=== PATIENT | male | born 1970 | race Two or more races ===

== ENCOUNTER 2019-07-31 21:53 | Emergency (ER) | payer OTHER ==
[2019-07-31 22:04] VITALS: TEMP 98; BMI 23.0
--- NOTE | 2019-07-31 22:55 | PDOC ---
History of Present Illness - General Chief Complaint: Weakness Stated Complaint: WEAKNESS Time Seen by Provider: 07/31/19 22:41 History Source: Patient Exam Limitations: No Limitations - History of Present Illness Initial Comments: 07/31/19 22:56 48yM w PMHx untreated HIV, Hep C, neuropathy, homeless, substance abuse (heroin , cocaine, fentanyl, alcohol) presenting from [facility] for cough, weight loss, back pain. Ongoing white productive cough and chills, 2 weeks, 60lb weight loss and diarrhea past 2 months, L paraspinal lumbar back pain 4 days. Last injected drugs yesterday. Says skin abrasions from scratching under cocaine. Did not take any pain meds, denies back trauma. Denies nausea/vomiting, chest pain/SOB, ABD pain, urinary changes. Denies suicidal/homicidal ideation Past History - Past Medical History Allergies/Adverse Reactions: Allergies Allergy/AdvReac Type Severity Reaction Status Date / Time NSAIDS (Non-Steroidal Allergy Severe Verified 07/31/19 16:56 Anti-Inflamma Home Medications: Ambulatory Orders Citalopram Hydrobromide [Citalopram HBr] 40 mg PO DAILY 07/31/19 Risperidone 1 mg PO DAILY 07/31/19 Sulfamethoxazole/Trimethoprim [Bactrim DS -] 800 mg PO DAILY 07/31/19 traZODone HCL [Trazodone HCl] 100 mg PO DAILY 07/31/19 Anemia: No Asthma: No Cancer: No Cardiac Disorders: No CVA: No COPD: No CHF: No Dementia: No Diabetes: No GI Disorders: Yes (GI BLEEDS) Disorders: No HTN: No Hypercholesterolemia: No Kidney Stones: No Liver Disease: No Seizures: No Other medical history: Hep C - Surgical History Abdominal Surgery: No Appendectomy: No Cardiac Surgery: No Cholecystectomy: No Lung Surgery: No Neurologic Surgery: No Orthopedic Surgery: No - Reproductive History Testicular Surgery: No - Psycho Social/Smoking Cessation Hx Smoking History: Never smoked Have you smoked in the past 12 months: No Number of Cigarettes Smoked Daily: 4 Information on smoking cessation initiated: No 'Breaking Loose' booklet given: 03/25/18 Hx Alcohol Use: No Drug/Substance Use Hx: No Substance Use Type: Alcohol, Cocaine, Marijuana Hx Substance Use Treatment: Yes Review of Systems - Review of Systems Constitutional: No: Chills, Fever HEENTM: Yes: Nose Congestion. No: Eye Pain, Nose Pain, Throat Pain Respiratory: Yes: Cough. No: Shortness of Breath Cardiac (ROS): No: Chest Pain, Palpitations ABD/GI: Yes: Diarrhea. No: Abdominal Distended, Constipated, Nausea, Vomiting : No: Burning, Dysuria, Hematuria Musculoskeletal: Yes: Back Pain. No: Joint Pain Integumentary: No: Bruising, Flushing, Lesions Neurological: No: Headache, Seizure, Tingling Psychiatric: No: Anxiety, Depression, Stressors Endocrine: No: Excessive Sweating, Flushing, Intolerance to Cold, Intolerance to Heat Hematologic/Lymphatic: No: Anemia, Blood Clots *Physical Exam - Vital Signs Last Vital Signs Temp Pulse Resp BP Pulse Ox 98.0 F 68 19 100/60 97 07/31/19 22:00 07/31/19 22:00 07/31/19 22:00 07/31/19 22:00 07/31/19 22:00 - Physical Exam General Appearance: Yes: Nourished, Appropriately Dressed, Mild Distress HEENT: positive: EOMI, TOI, Normal Voice, Nasal Congestion, Hearing Grossly Normal, Other (forehead excoriations). negative: Scleral Icterus (R), Scleral Icterus (L) Neck: positive: Supple. negative: Tender, Rigid Respiratory/Chest: positive: Other (coarse breath sounds ramana). negative: Chest Tender, Respiratory Distress, Accessory Muscle Use, Labored Respiration, Crackles, Stridor, Wheezing Cardiovascular: positive: Regular Rhythm, Regular Rate, S1, S2. negative: Edema , Murmur Gastrointestinal/Abdominal: positive: Normal Bowel Sounds, Flat, Soft. 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 negative: Sensory Deficit, Confused, Disoriented ED Treatment Course - LABORATORY CBC & Chemistry Diagram: 07/31/19 23:59 08/01/19 01:07 Medical Decision Making - Medical Decision Making 07/31/19 23:46 EKG sinus bradycardia, TWI V1, no other ST changes, unchanged CT chest pending WBC 2.2, Hgb 10.9, AST 167, ALT 94 --- 48yM w PMHx untreated HIV, Hep C, neuropathy, homeless, substance abuse (heroin , cocaine, fentanyl, alcohol) presenting from [facility] for 2 week cough, 2 month weight loss, back pain. DDX: TB (neutropenic, cough, weight loss) vs PJP PNA (has HIV) vs community acquired PNA. Low concern for epidural abscess (no fevers, midline tenderness) Given 1L NS, tylenol Anticipate admit for lung pathology, neutropenia Signed off to night team - pending CT chest, UA Discharge - Discharge Information Problems reviewed: Yes Clinical Impression/Diagnosis: Cough, Weight loss Condition: Stable - Follow up/Referral - Patient Discharge Instructions - Post Discharge Activity
[2019-07-31] MEDS ORDERED: ACETAMINOPHEN 1000 MG/100 ML VIAL (NON FORMULARY) IVPB ONE (23:13)
[2019-07-31] MEDS ORDERED: SODIUM CHLORIDE 0.9% 500 ML INFUS.BAG IV ONE (23:13)
[2019-08-01] MEDS ORDERED: ACETAMINOPHEN INJECTION 100 ML IVPB ONE (00:04)
[2019-08-01 00:08] LABS: BASO % 0.7 % (0-2.0); EOS % 3.3 % (0-4.5); HEMATOCRIT 32.6 % (35.4-49); HEMOGLOBIN 10.9 GM/dL (11.7-16.9); LYMPH % 19.9 % (8-40); MCH 31.9 pg (25.7-33.7); MCHC 33.4 g/dl (32.0-35.9); MEAN CELL VOLUME 95.4 fl (80-96); MEAN PLT VOLUME 9.1 fl (7.5-11.1); MONO % 17.3 % (3.8-10.2); NEUT % 58.8 % (42.8-82.8); PLATELET COUNT 195 K/MM3 (134-434); RBC 3.42 M/mm3 (4.00-5.60); RDW 15.8 % (11.9-15.9); WHITE BLOOD COUNT 2.2 K/mm3 (4.0-10.0)
[2019-08-01 01:35] LABS: INR 1.19 (0.83-1.09); PROTHROMBIN TIME (PATIENT) 14.1 SEC (9.7-13.0)
[2019-08-01 01:45] LABS: ALBUMIN 2.3 g/dl (3.4-5.0); BILIRUBIN,TOTAL 0.4 mg/dL (0.2-1); BLOOD UREA NITROGEN 6.8 mg/dL (7-18); CREATININE 0.6 mg/dL (0.55-1.3); POTASSIUM 3.7 mmol/L (3.5-5.1); TOT PROT 6.3 g/dl (6.4-8.2)
--- NOTE | 2019-08-01 01:55 | PDOC ---
Documentation entered by Christen Bull SCRIBE, acting as scribe for Venita Harrell MD. Venita Harrell MD: This documentation has been prepared by the Jorgito larson Nirvannie, SCRIBE, under my direction and personally reviewed by me in its entirety. I confirm that the documentation accurately reflects all work, treatment, procedures, and medical decision making performed by me. Attending Attestation - Resident Resident Name: Ra Jones - ED Attending Attestation I have performed the following: I have examined & evaluated the patient, The case was reviewed & discussed with the resident, I agree w/resident's findings & plan, Exceptions are as noted - HPI HPI: 07/31/19 23:40 The patient is a year old male, with a significant past medical history of HIV, Hep C, neuropathy, polysubstance abuse (heroin, cocaine, fentanyl, alcohol), and noncompliance who presents to the emergency department via EMS from [facility] with 2 weeks of productive cough with white sputum, 60lb weight loss and diarrhea over the course of 2 months. Patient endorses left flank, lumbar pain. Last drug usage: 07/30/19. He denies any recent chest pain or shortness of breath. Allergies: NSAIDS - Physicial Exam PE: 07/31/19 23:40 GENERAL: +Thin. No apparent distress. HEENT: +Significant excoriations to the head and scalp. PERRL, EOM intact. CARDIOVASCULAR: Normal S1, S2. Regular rate and rhythm. PULMONARY: Clear to auscultation bilaterally. ABDOMEN: Soft, non-distended, non-tender. EXTREMITIES: Normal ROM in all four extremities. No gross deformities. BACK: +No area of induration or erythema. SKIN: +Scattered excoriations to the arms and legs. NEUROLOGICAL: No focal neurological deficits. 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
--- NOTE | 2019-08-01 02:22 | PDOC ---
*Physical Exam - Vital Signs Last Vital Signs Temp Pulse Resp BP Pulse Ox 98.0 F 68 19 100/60 97 07/31/19 22:00 07/31/19 22:00 07/31/19 22:00 07/31/19 22:00 07/31/19 22:00 ED Treatment Course - LABORATORY CBC & Chemistry Diagram: 07/31/19 23:59 08/01/19 01:07 - ADDITIONAL ORDERS Additional order review: Laboratory Results 08/01/19 08/01/19 07/31/19 01:07 01:07 23:59 PT with INR 14.10 H INR 1.19 H Sodium 137 Cancelled Potassium 3.7 Cancelled Chloride 109 H Cancelled Carbon Dioxide 22 Cancelled Anion Gap 6 L Cancelled BUN 6.8 L Cancelled Creatinine 0.6 Cancelled Est GFR (CKD-EPI)AfAm 137.80 Cancelled Est GFR (CKD-EPI)NonAf 118.89 Cancelled Random Glucose 81 Cancelled Calcium 7.0 L Cancelled Phosphorus Magnesium Cancelled Total Bilirubin 0.4 Cancelled AST 167 H Cancelled ALT 94 H Cancelled Alkaline Phosphatase 92 Cancelled Total Protein 6.3 L Cancelled Albumin 2.3 L Cancelled Blood Type Antibody Screen 07/31/19 07/31/19 07/31/19 23:59 23:59 23:59 PT with INR Cancelled INR Cancelled Sodium Potassium Chloride Carbon Dioxide Anion Gap BUN Creatinine Est GFR (CKD-EPI)AfAm Est GFR (CKD-EPI)NonAf Random Glucose Calcium Phosphorus Cancelled Magnesium Total Bilirubin AST ALT Alkaline Phosphatase Total Protein Albumin Blood Type Cancelled Antibody Screen Cancelled 07/31/19 23:59 RBC 3.42 L MCV 95.4 MCHC 33.4 RDW 15.8 MPV 9.1 Neutrophils % 58.8 Lymphocytes % 19.9 Monocytes % 17.3 H Eosinophils % 3.3 Basophils % 0.7 - Medications Given in the ED: ED Medications Discontinued Medications Generic Name Dose Route Start Last Admin Trade Name Freq PRN Reason Stop Dose Admin Acetaminophen 1,000 mg 07/31/19 23:13 08/01/19 00:12 Ofirmev Injection - IVPB 07/31/19 23:14 1,000 mg ONCE ONE Administration Sodium Chloride 1,000 ml 07/31/19 23:13 08/01/19 00:11 Normal Saline - IV 07/31/19 23:14 1,000 ml ONCE ONE Administration Medical Decision Making - Medical Decision Making 08/01/19 02:[address] Jones. Will f/u CT scan of chest w/ contrast, admit patient. 08/01/19 04:05 CT chest without acute pathology. Patient without significant neutropenia (WBC 2.2, ANC 1300). Discussed importance of getting HIV treated with the patient. Patient states that he is able to get a primary care doctor and pursue treatment for his HIV, but he would like to go to detox first. Will plan for dc to [facility] for detox. Discharge - Discharge Information Problems reviewed: Yes Clinical Impression/Diagnosis: Cough, Weight loss, HIV (human immunodeficiency virus infection), Cocaine dependence, Cannabis dependence Condition: Stable Disposition: HOME - Admission No - Follow up/Referral Referrals: [facility] [place] [Provider Group] - Patient Discharge Instructions Patient Printed Discharge Instructions: DI for HIV, DI for Cocaine Use Disorder Additional Instructions: You were seen with concern for HIV and potential lung infection. Your chest CT did not show any abnormalities, and your labs also did not show acute concerns. However, it is extremely important that you pursue a primary care doctor to get treated for your HIV. We will discharge you straight to [facility] to get acute detox. Return to the ED if you develop worsening symptoms. - Post Discharge Activity
[2019-08-01] MEDS ORDERED: SODIUM CHLORIDE 0.9% 500 ML INFUS.BAG IV ONE (06:17)
[2019-08-01 07:55] VITALS: BP 93/62; PULSE 55
--- NOTE | 2019-08-01 09:28 | EKG ---
Test Reason : Blood Pressure : / mmHG Vent. Rate : 054 BPM Atrial Rate : 054 BPM P-R Int : 152 ms QRS Dur : 090 ms QT Int : 478 ms P-R-T Axes : 040 051 037 degrees QTc Int : 453 ms SINUS BRADYCARDIA OTHERWISE NORMAL ECG WHEN COMPARED WITH ECG OF 24-MAR-2018 01:26, NO SIGNIFICANT CHANGE WAS FOUND Confirmed by Mc Hollis MD ([id number]) on 08/01/2019 9:28:29 AM Referred By: Confirmed By:Mc Hollis MD
== END 2019-08-01 07:57 | disposition home or self-care (01) ==
LOC: JER 21:53
PROC: 3E033NZ Introduction of Analgesics, Hypnotics, Sedatives into Peripheral Vein, Percutaneous Approach (ICD-10-PCS; principal; 2019-07-31)
DX: R05 Cough (principal); R63.4 Abnormal weight loss; Z68.23 Body mass index [BMI] 23.0-23.9, adult; Z21 Asymptomatic human immunodeficiency virus [HIV] infection status; B18.2 Chronic viral hepatitis C; F10.20 Alcohol dependence, uncomplicated; F11.20 Opioid dependence, uncomplicated; F14.20 Cocaine dependence, uncomplicated; Z59.0 Homelessness; Z88.6 Allergy status to analgesic agent
CPT/HCPCS: 36415; 71260-TC; 80053; 85025; 85610; 87040; 93005; 93010; 96374; 99284-25; J0131; Q9967

== ENCOUNTER 2019-08-01 08:27 | Inpatient (IN) | payer OTHER ==
[2019-08-01 08:49] VITALS: BMI 23.4
--- NOTE | 2019-08-01 09:51 | HP ---
CIWA Score Nausea/Vomitin-No Nausea/No Vomiting Muscle Tremors: 1-None Visible, but Bells Anxiety: 1-Mildly Anxious Agitation: 1-Slight > Activity Paroxysmal Sweats: No Perspiration Orientation: 0-Oriented Tacttile Disturbances: 0-None Auditory Disturbances: 0-None Visual Disturbances: 0-None Headache: 1-Very Mild CIWA-Ar Total Score: 4 - Admission Criteria OASAS Guidelines: Admission for Medically Managed Detox: Requires at least one of the followin. CIWA greater than 12 2. Seizures within the past 24 hours 3. Delirium tremens within the past 24 hours 4. Hallucinations within the past 24 hours 5. Acute intervention needed for co occurring medical disorder 6. Acute intervention needed for co occurring psychiatric disorder 7. Severe withdrawal that cannot be handled at a lower level of care (continued vomiting, continued diarrhea, abnormal vital signs) requiring intravenous medication and/or fluids 8. Admitting History and Physical - Admission Chief Complaint: i need help to go to rehab from alcohol,coaine,marijuana, heroin abused History of Present Illness: this 48 years old male with alcohol,cocaine,marijuana abused,heroin abused, seeking help, clear by [facility] to return for rehab denied seizure no syncope chronic coughing for 1 months hiv positive since 1996 History Source: Patient Limitations to Obtaining History: No Limitations - Past Medical History AUTOMATION SPECIALIST: Yes: Syncope Infectious Disease: Yes: HIV (since 1996) Psych: Yes: Depression - Smoking History Smoking history: Never smoked Have you smoked in the past 12 months: No Aproximately how many cigarettes per day: 4 - Alcohol/Substance Use Hx Alcohol Use: Yes History of Substance Use: reports: Cocaine, Heroin, Marijuana - Social History Usual Living Arrangement: Yes: Other (nursing home) ADL: Support Services Occupation: unemployed Admission ROS [facility] Chief Complaint: i need help to come in rehab from alcoholcocaine,marijuana,heroin abused, medicaaly clear to return for rehab Allergies/Adverse Reactions: Allergies Allergy/AdvReac Type Severity Reaction Status Date / Time NSAIDS (Non-Steroidal Allergy Severe Verified 08/01/19 08:42 Anti-Inflamma History of Present Illness: this 48 years old male with alcohol,cocaine,marijuana,heroin abused,medically clear to return for rehab, last treatment 03/23/18 to 03/24/18 weight loss depression hepatitis c hiv since 1996 non compliance no med since 04/12 longest sobriety 2 years weight loss Exam Limitations: No Limitations - Ebola screening Have you traveled outside of the country in the last 21 days: No Have you had contact with anyone from an Ebola affected area: No Do you have a fever: No - Review of Systems Constitutional: No Symptoms Reported, Loss of Appetite, Malaise, Unintentional Wgt. Loss EENT: reports: No Symptoms Reported Respiratory: reports: Cough Cardiac: reports: No Symptoms Reported GI: reports: No Symptoms Reported : reports: No Symptoms Reported Musculoskeletal: reports: No Symptoms Reported Integumentary: reports: No Symptoms Reported Neuro: reports: No Symptoms reported Endocrine: reports: No Symptoms Reported Hematology: reports: Other (hiv) Psychiatric: reports: Depressed Other Systems: Reviewed and Negative Patient History - Patient Medical History Hx Anemia: No Hx Asthma: No Hx Chronic Obstructive Pulmonary Disease (COPD): No Hx Cancer: No Hx Cardiac Disorders: No Hx Congestive Heart Failure: No Hx Hypertension: No Hx Hypercholesterolemia: No Hx Pacemaker: No HX Cerebrovascular Accident: No Hx Seizures: No Hx Dementia: No Hx Diabetes: No Hx Gastrointestinal Disorders: Yes (GI BLEEDS) Hx Liver Disease: No Hx Genitourinary Disorders: No Hx Sexually Transmitted Disorders: Yes (hiv) Hx Renal Disease (ESRD): No Hx Human Immunodeficiency Virus (HIV): Yes (since 1996) Hx Hepatitis C: Yes Hx Depression: Yes Hx Suicide Attempt: No Hx Bipolar Disorder: No Hx Schizophrenia: No Other Medical History: no suicidal,no homicidal - Patient Surgical History Past Surgical History: No Hx Neurologic Surgery: No Hx Cataract Extraction: No Hx Cardiac Surgery: No Hx Lung Surgery: No Hx Breast Surgery: No Hx Breast Biopsy: No Hx Abdominal Surgery: No Hx Appendectomy: No Hx Cholecystectomy: No Hx Genitourinary Surgery: No Hx Section: No Hx Orthopedic Surgery: No Anesthesia Reaction: No - PPD History Previous Implant?: Yes Documented Results: Negative w/o proof Date: 03/26/18 PPD to be Administered?: Yes - Smoking Cessation Smoking history: Never smoked Have you smoked in the past 12 months: No Aproximately how many cigarettes per day: 7 Hx Chewing Tobacco Use: No Initiated information on smoking cessation: Yes 'Breaking Loose' booklet given: 08/01/19 - Substance & Tx. History Hx Alcohol Use: Yes Hx Substance Use: Yes Substance Use Type: Alcohol, Cocaine, Heroin, Marijuana - Substances abused Alcohol Substance route: Oral Frequency: Daily Amount used: 1.5 pint of vodka Age of first use: 15 Date of last use: 07/30/19 Heroin Substance route: Injection Frequency: Daily Amount used: 7 bags Age of first use: 46 Date of last use: 07/30/19 Cocaine Substance route: Inhalation Frequency: Daily Amount used: $100 Age of first use: 25 Date of last use: 07/30/19 Other Other (specify): Fentanyl Substance route: Injection Frequency: Daily Amount used: $50 Age of first use: 46 Date of last use: 07/30/19 Marijuana/Hashish Substance route: Smoking Frequency: Daily Amount used: 20$ Age of first use: 15 Date of last use: 07/30/19 Admission Physical Exam [facility] - Vital Signs Vital Signs: Vital Signs - 24 hr 08/01/19 08:37 Temperature 97.5 F L Pulse Rate 52 L Respiratory 16 Rate Blood Pressure 90/54 L - Physical General Appearance: Yes: No Apparent Distress, Anxious HEENTM: Yes: Normal ENT Inspection, TOI, Pharynx Normal Respiratory: Yes: Lungs Clear, Normal Breath Sounds, No Respiratory Distress Neck: Yes: Within Normal Limits, Supple, Trachea in good position Breast: Yes: Within Normal Limits Cardiology: Yes: Regular Rate, S1, S2, Bradycardia Abdominal: Yes: Within Normal Limits, Normal Bowel Sounds, Non Tender, Soft Genitourinary: Yes: Within Normal Limits Back: Yes: Within Normal Limits Musculoskeletal: Yes: Within Normal Limits Extremities: Yes: Within Normal Limits 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, Fully Oriented, Alert, Motor Strength 5/5 Integumentary: Yes: Within Normal Limits Lymphatic: Yes: Within Normal Limits - Diagnostic (1) Alcohol amnestic disorder Current Visit: Yes Status: Acute (2) HIV (human immunodeficiency virus infection) Current Visit: No Status: Chronic (3) Cocaine dependence Current Visit: Yes Status: Chronic (4) Cannabis dependence Current Visit: Yes Status: Chronic (5) Bradycardia Current Visit: Yes Status: Acute (6) HIV (human immunodeficiency virus infection) Current Visit: Yes Status: Acute (7) Weight loss Current Visit: Yes Status: Acute (8) Heroin abuse Current Visit: Yes Status: Acute (9) Hepatitis C Current Visit: Yes Status: Acute (10) Depression Current Visit: Yes Status: Acute (11) Chronic cough Current Visit: Yes Status: Acute Cleared for Admission [facility] - Detox or Rehab Claeared for Rehab Admission: Yes Breathalyzer - Breathalyzer Breathalyzer: 0 Urine Drug Screen - Test Device Lot number: [id number] Expiration date: 02/22/21 - Control Is test valid?: Yes - Results Drug screen NEGATIVE: No Urine drug screen results: THC-Marijuana, INA-Cocaine Inpatient Rehab Admission - Rehab Decision to Admit Inpatient rehab admission?: Yes - Initial Determination Are CD services needed?: Yes Free of communicable disease: Yes Not in need of hospitalization: Yes - Rehab Admission Criteria Previous failed treatment: Yes Poor recovery environment: Yes Comorbidities: Yes Lacks judgement: No Patient is meeting Inpatient Rehab admission criteria:: Yes
[2019-08-01] MEDS ORDERED: MAG HYDROX/AL HYDROX/SIMETH 30 ML UNIT-DOSE CUP PO PRN (10:11)
[2019-08-01] MEDS ORDERED: guaiFENesin 200 MG/10 ML 10 ML UNIT-DOSE CUPS PO PRN (10:11)
[2019-08-01] MEDS ORDERED: ACETAMINOPHEN 325 MG TABLET (FP) PO PRN (10:11)
[2019-08-01] MEDS ORDERED: MAGNESIUM HYDROX 2400MG/30ML ORAL SUSPENSION 30 ML CUP PO PRN (10:11)
[2019-08-01] MEDS ORDERED: MENTHOL/PHENOL 1 EACH UD MM PRN (10:11)
[2019-08-01] MEDS ORDERED: P-EPHED 60MG/TRIPROLIDI 2.5MG TABLET PO PRN (10:11)
[2019-08-01] MEDS ORDERED: MAGNESIUM CITRATE 300 ML BOTTLE PO PRN (10:11)
--- NOTE | 2019-08-01 10:20 | PN ---
[facility] Progress Note Note: patient did not take medications since 04/12
[2019-08-01] MEDS ORDERED: FLU VACCINE QUAD 60 MCG/0.5 ML (MDV 19-20) IM ONE (11:28)
[2019-08-01] MEDS: BACITRACIN 15 GM TUBE TOPICAL OINTMENT TP SCH ×2 (11:33→21:40)
[2019-08-01] MEDS: NICOTINE 14 MG/24 HOURS TOPICAL PATCH TD SCH (11:33)
--- NOTE | 2019-08-01 15:20 | CONSULT ---
[facility] Psychiatric Consult - Data Date of interview: 08/01/19 Admission source: [facility] Identifying data: First visit to [facility] and admission to [address] for this 48 y/o male referred from [facility] for rehabilitation. CHENTE issues (heroin, cocaine, alcohol, cannabis, nicotine) co- morbid with MDD (self-report). Patient is single, no children, homeless, unemployed and supported on SSI benefits. Substance Abuse History: Discussed with the patient. Details in current [facility] report as follows : Smoking history: Never smoked. Have you smoked in the past 12 months: No. Aproximately how many cigarettes per day: 7. Hx Chewing Tobacco Use: No. Initiated information on smoking cessation: Yes. 'Breaking Loose' booklet given: 08/01/19. - Substance & Tx. History. Hx Alcohol Use: Yes. Hx Substance Use: Yes. Substance Use Type: Alcohol, Cocaine, Heroin, Marijuana. - Substances abused. Alcohol. Substance route: Oral. Frequency : Daily. Amount used: 1.5 pint of vodka. Age of first use: 15. Date of last use: 07/30/19. Heroin. Substance route: Injection. Frequency: Daily. Amount used: 7 bags. Age of first use: 46. Date of last use: 07/30/19. Cocaine. Substance route: Inhalation. Frequency: Daily. Amount used: $100. Age of first use: 25. Date of last use: 07/30/19. Other. Other (specify): Fentanyl. Substance route: Injection. Frequency: Daily. Amount used: $50. Age of first use: 46. Date of last use: 07/30/19. Marijuana/Hashish. Substance route: Smoking. Frequency: Daily. Amount used: 20$. Age of first use: 15. Date of last use: 07/30/19 Medical History: Medical profile is remarkable for HIV infection since 1996 ( non compliant with ART medications) cachexia, hepatitis C and peripheral neuropathy. Psychiatric History: Patient endorses a history of three psychiatric hospitalizations. He recalls [facility] as the institution where he received psychiatric inpatient care about two months ago. Mr Guzman reports the diagnosis of MDD co-morbid with CHENTE (opioid, cocaine, cannabis, alcohol, nicotine). No recent connection with OPD care (self-report). Patient admits to one suicide attempt via self-mutilation (wrist-cutting) in 1996, precipitated by the discovery of his seroconversion to HIV. Physical/Sexual Abuse/Trauma History: Not discussed. Patient declines. Additional Comment: Urine drug screen results: THC-Marijuana, INA-Cocaine. Noted. Mental Status Exam - Mental Status Exam Alert and Oriented to: Time, Place, Person Cognitive Function: Grossly Intact Patient Appearance: Unkempt, Disheveled Mood: Nervous, Withdrawn, Irritable Affect: Mood Congruent, Constricted Patient Behavior: Cooperative Speech Pattern: Clear, Appropriate Voice Loudness: Normal Thought Process: Goal Oriented Thought Disorder: Not Present Hallucinations: Denies Suicidal Ideation: Denies Homicidal Ideation: Denies Insight/Judgement: Fair Sleep: Poorly, Difficulty falling asleep (as per self-report) Appetite: Poor, Weight loss Gait/Station: Normal Psychiatric Findings - Problem List ([place] 1, 2,3) (1) Alcohol use disorder Current Visit: Yes Status: Chronic (2) Cannabis dependence Current Visit: Yes Status: Chronic (3) Cocaine dependence Current Visit: Yes Status: Chronic (4) Nicotine dependence Current Visit: Yes Status: Chronic (5) Substance induced mood disorder Current Visit: Yes Status: Chronic (6) MDD (major depressive disorder) Current Visit: Yes Status: Chronic Comment: As per self-report. On citalopram. (7) Insomnia Current Visit: Yes Status: Chronic (8) Non-compliance Current Visit: Yes Status: Chronic Comment: with medical + psychiatric OPD care. - Initial Treatment Plan Initial Treatment Plan: Psychoeducation. Support. Sleep hygiene. Motivational counseling. AA/NA meetings. Groups. Resumed : celexa 10 mg po daily + trazodone 25 mg po hs. Dose for both drugs are reduced (in view of enduring history of non -adherence + sinus bradycardia + cachectic habitus). No clear justification for risperidone at time of this examination. Held until further orders. Side effects /benefits of trazodone and citalopram are discussed with the patient. Mr Guzman expresses his agreement with this plan of care. Informed consent (verbal) obtained from patient. Heel Buffer contacted the pharmacist at [facility] ([phone]) for verification of medications : most recent refills were for celexa 20 mg/day + trazodone 100 mg/hs + gabapentin 300 mg/tid dated . No risperdal on file. Observation.
[2019-08-01] MEDS: traZODone HCL 50 MG TABLET (FP) PO SCH (21:40)
[2019-08-01] MEDS: THIAMINE HCL 100 MG TABLET (FP) PO SCH (21:40)
[2019-08-01] MEDS ORDERED: MELATONIN 5 MG TABLETS PO PRN (22:00)
[2019-08-02 09:43] LABS: HEMATOCRIT 33.2 % (35.4-49); HEMOGLOBIN 10.9 GM/dL (11.7-16.9); MCH 31.8 pg (25.7-33.7); MCHC 32.8 g/dl (32.0-35.9); MEAN PLT VOLUME 8.5 fl (7.5-11.1); PLATELET COUNT 153 K/MM3 (134-434); RBC 3.42 M/mm3 (4.00-5.60); RDW 15.7 % (11.9-15.9); WHITE BLOOD COUNT 2.7 K/mm3 (4.0-10.0)
[2019-08-02 10:21] LABS: ALBUMIN 2.3 g/dl (3.4-5.0); BILIRUBIN,TOTAL 0.3 mg/dL (0.2-1); BLOOD UREA NITROGEN 5.5 mg/dL (7-18); CALCIUM 7.7 mg/dL (8.5-10.1); CREATININE 0.8 mg/dL (0.55-1.3); POTASSIUM 3.6 mmol/L (3.5-5.1); TOT PROT 6.5 g/dl (6.4-8.2)
--- NOTE | 2019-08-02 10:29 | PN ---
[facility] Progress Note Note: Vital Signs Temperature 98.6 F 08/01/19 11:13 Pulse Rate 56 L 08/01/19 11:13 Respiratory Rate 18 08/02/19 03:30 Blood Pressure 99/58 L 08/01/19 11:13 O2 Sat by Pulse Oximetry (%) Laboratory Last Values WBC 2.7 K/mm3 (4.0-10.0) L 08/02/19 08:15 RBC 3.42 M/mm3 (4.00-5.60) L 08/02/19 08:15 Hgb 10.9 GM/dL (11.7-16.9) L 08/02/19 08:15 Hct 33.2 % (35.4-49) L 08/02/19 08:15 MCV 97.0 fl (80-96) H 08/02/19 08:15 MCH 31.8 pg (25.7-33.7) 08/02/19 08:15 MCHC 32.8 g/dl (32.0-35.9) 08/02/19 08:15 RDW 15.7 % (11.9-15.9) 08/02/19 08:15 Plt Count 153 K/MM3 (134-434) D 08/02/19 08:15 MPV 8.5 fl (7.5-11.1) 08/02/19 08:15 Sodium 138 mmol/L (136-145) 08/02/19 08:15 Potassium 3.6 mmol/L (3.5-5.1) 08/02/19 08:15 Chloride 107 mmol/L (98-107) 08/02/19 08:15 Carbon Dioxide 24 mmol/L (21-32) 08/02/19 08:15 Anion Gap 7 MMOL/L (8-16) L 08/02/19 08:15 BUN 5.5 mg/dL (7-18) L 08/02/19 08:15 Creatinine 0.8 mg/dL (0.55-1.3) 08/02/19 08:15 Est GFR (CKD-EPI)AfAm 122.43 08/02/19 08:15 Est GFR (CKD-EPI)NonAf 105.63 08/02/19 08:15 Random Glucose 83 mg/dL (74-106) 08/02/19 08:15 Calcium 7.7 mg/dL (8.5-10.1) L 08/02/19 08:15 Total Bilirubin 0.3 mg/dL (0.2-1) 08/02/19 08:15 AST 132 U/L (15-37) H 08/02/19 08:15 ALT 92 U/L (13-61) H 08/02/19 08:15 Alkaline Phosphatase 102 U/L (45-117) 08/02/19 08:15 Total Protein 6.5 g/dl (6.4-8.2) 08/02/19 08:15 Albumin 2.3 g/dl (3.4-5.0) L 08/02/19 08:15 repeat cbc d/c acetaminophen d/t elevated LFTS stable continue to monitor
[2019-08-02] MEDS: NICOTINE 14 MG/24 HOURS TOPICAL PATCH TD SCH (10:46)
[2019-08-02] MEDS: PRENATAL VITAMINS W/ FOLIC ACID TABLET (FP) PO SCH (10:46)
[2019-08-02] MEDS: CITALOPRAM HYDROBROMIDE 10 MG TABLET PO SCH (10:46)
[2019-08-02] MEDS: BACITRACIN 15 GM TUBE TOPICAL OINTMENT TP SCH ×2 (10:48→21:43)
[2019-08-02] MEDS ORDERED: FLU VACCINE QUAD 60 MCG/0.5 ML (MDV 19-20) IM ONE (12:00)
[2019-08-02] MEDS: traZODone HCL 50 MG TABLET (FP) PO SCH (21:43)
[2019-08-02] MEDS: THIAMINE HCL 100 MG TABLET (FP) PO SCH (21:43)
[2019-08-02 22:14] LABS: URINE APPEARANCE CLOUDY; URINE BILIRUBIN NEGATIVE (NEGATIVE); URINE COLOR YELLOW; URINE GLUCOSE (UA) NEGATIVE (NEGATIVE); URINE KETONE NEGATIVE (NEGATIVE); URINE LEUK ESTERASE NEGATIVE (NEGATIVE); URINE NITRITE NEGATIVE (NEGATIVE); URINE PROTEIN TRACE (NEGATIVE)
[2019-08-03] MEDS: NICOTINE 14 MG/24 HOURS TOPICAL PATCH TD SCH (10:22)
[2019-08-03] MEDS: CITALOPRAM HYDROBROMIDE 10 MG TABLET PO SCH (10:22)
[2019-08-03] MEDS: PRENATAL VITAMINS W/ FOLIC ACID TABLET (FP) PO SCH (10:22)
[2019-08-03] MEDS: BACITRACIN 15 GM TUBE TOPICAL OINTMENT TP SCH ×2 (10:22→21:43)
--- NOTE | 2019-08-03 10:57 | PN ---
SUNDAY Progress Note Note: Patient is complaining of back pain which is chronic. He is NSAID allergic Will give 325mg of tylenol Q4H for pain and not to exceed [address] Juarez
[2019-08-03] MEDS: ACETAMINOPHEN 325 MG TABLET (FP) PO PRN ×2 (12:23→18:56)
[2019-08-03 14:15] LABS: HEMATOCRIT 36.6 % (35.4-49); HEMOGLOBIN 11.8 GM/dL (11.7-16.9); MCH 31.7 pg (25.7-33.7); MCHC 32.3 g/dl (32.0-35.9); MEAN CELL VOLUME 98.3 fl (80-96); MEAN PLT VOLUME 8.7 fl (7.5-11.1); PLATELET COUNT 204 K/MM3 (134-434); RBC 3.72 M/mm3 (4.00-5.60); RDW 16.2 % (11.9-15.9); WHITE BLOOD COUNT 4.2 K/mm3 (4.0-10.0)
[2019-08-03] MEDS: traZODone HCL 50 MG TABLET (FP) PO SCH ×2 (21:43→23:06)
[2019-08-03] MEDS: THIAMINE HCL 100 MG TABLET (FP) PO SCH (21:43)
[2019-08-03] MEDS: LOPERAMIDE HCL 2 MG CAPSULE PO PRN (23:04)
[2019-08-03] MEDS: hydrOXYzine PAMOATE 50 MG CAPSULE (FP) PO PRN (23:07)
[2019-08-04] MEDS: CITALOPRAM HYDROBROMIDE 10 MG TABLET PO SCH (10:32)
[2019-08-04] MEDS: BACITRACIN 15 GM TUBE TOPICAL OINTMENT TP SCH ×2 (10:32→21:42)
[2019-08-04] MEDS: PRENATAL VITAMINS W/ FOLIC ACID TABLET (FP) PO SCH (10:32)
[2019-08-04] MEDS: NICOTINE 14 MG/24 HOURS TOPICAL PATCH TD SCH (10:33)
[2019-08-04] MEDS: ACETAMINOPHEN 325 MG TABLET (FP) PO PRN ×2 (10:38→17:23)
[2019-08-04] MEDS: THIAMINE HCL 100 MG TABLET (FP) PO SCH (21:21)
[2019-08-04] MEDS: MELATONIN 5 MG TABLETS PO PRN (21:22)
[2019-08-04] MEDS: traZODone HCL 50 MG TABLET (FP) PO SCH (21:22)
[2019-08-04] MEDS: hydrOXYzine PAMOATE 50 MG CAPSULE (FP) PO PRN (21:22)
[2019-08-05] MEDS: ACETAMINOPHEN 325 MG TABLET (FP) PO PRN ×2 (08:27→15:36)
[2019-08-05] MEDS: CITALOPRAM HYDROBROMIDE 10 MG TABLET PO SCH (09:17)
[2019-08-05] MEDS: PRENATAL VITAMINS W/ FOLIC ACID TABLET (FP) PO SCH (09:17)
[2019-08-05] MEDS: NICOTINE 14 MG/24 HOURS TOPICAL PATCH TD SCH (09:17)
[2019-08-05] MEDS: BACITRACIN 15 GM TUBE TOPICAL OINTMENT TP SCH ×2 (09:18→21:17)
[2019-08-05] MEDS: LIDOCAINE 5% TOPICAL PATCH TP SCH (10:59)
[2019-08-05] MEDS: THIAMINE HCL 100 MG TABLET (FP) PO SCH (21:15)
[2019-08-05] MEDS: LIDOCAINE PATCH REMOVAL MC SCH (21:16)
[2019-08-05] MEDS: traZODone HCL 50 MG TABLET (FP) PO SCH (21:16)
[2019-08-05] MEDS: MELATONIN 5 MG TABLETS PO PRN (21:16)
[2019-08-05] MEDS: hydrOXYzine PAMOATE 50 MG CAPSULE (FP) PO PRN (21:17)
[2019-08-06] MEDS: BACITRACIN 15 GM TUBE TOPICAL OINTMENT TP SCH ×2 (09:19→21:16)
[2019-08-06] MEDS: LIDOCAINE 5% TOPICAL PATCH TP SCH (09:19)
[2019-08-06] MEDS: CITALOPRAM HYDROBROMIDE 10 MG TABLET PO SCH (09:19)
[2019-08-06] MEDS: PRENATAL VITAMINS W/ FOLIC ACID TABLET (FP) PO SCH (09:19)
[2019-08-06] MEDS: NICOTINE 14 MG/24 HOURS TOPICAL PATCH TD SCH (09:39)
[2019-08-06] MEDS: MELATONIN 5 MG TABLETS PO PRN (21:14)
[2019-08-06] MEDS: LIDOCAINE PATCH REMOVAL MC SCH (21:14)
[2019-08-06] MEDS: THIAMINE HCL 100 MG TABLET (FP) PO SCH (21:14)
[2019-08-06] MEDS: traZODone HCL 50 MG TABLET (FP) PO SCH (21:14)
[2019-08-06] MEDS: hydrOXYzine PAMOATE 50 MG CAPSULE (FP) PO PRN (21:15)
[2019-08-06] MEDS: ACETAMINOPHEN 325 MG TABLET (FP) PO PRN (21:15)
[2019-08-07] MEDS: LIDOCAINE 5% TOPICAL PATCH TP SCH (09:50)
[2019-08-07] MEDS: NICOTINE 14 MG/24 HOURS TOPICAL PATCH TD SCH (09:50)
[2019-08-07] MEDS: CITALOPRAM HYDROBROMIDE 10 MG TABLET PO SCH (09:51)
[2019-08-07] MEDS: ACETAMINOPHEN 325 MG TABLET (FP) PO PRN ×2 (09:51→16:38)
[2019-08-07] MEDS: PRENATAL VITAMINS W/ FOLIC ACID TABLET (FP) PO SCH (09:53)
[2019-08-07] MEDS: BACITRACIN 15 GM TUBE TOPICAL OINTMENT TP SCH ×2 (10:25→21:43)
[2019-08-07 12:33] LABS: ALBUMIN 2.4 g/dl (3.4-5.0); BILIRUBIN,TOTAL 0.2 mg/dL (0.2-1); BLOOD UREA NITROGEN 14.9 mg/dL (7-18); CALCIUM 7.7 mg/dL (8.5-10.1); CREATININE 0.8 mg/dL (0.55-1.3); POTASSIUM 4.1 mmol/L (3.5-5.1)
--- NOTE | 2019-08-07 14:19 | PN ---
[facility] Progress Note Note: PATIENT C/O LBP AND REQUESTED SUBOXONE. REPORTS HX OF HEROIN, INA, THC USE, HOWEVER UPON ADMISSION URINE TOX + THC AND COCAINE ONLY. PATIENT HAS HX OF AIDS AND HEP C AND STATES HIS BACK HAS BEEN HURTING HIM. HAS LIDOCAINE PATCH IN PLACE WHICH PROVIDES MILD RELIEF. Vital Signs Temperature 97.6 F 08/07/19 06:46 Pulse Rate 61 08/07/19 06:46 Respiratory Rate 18 08/07/19 06:46 Blood Pressure 96/62 08/07/19 06:46 O2 Sat by Pulse Oximetry (%) Laboratory Tests 08/01/19 08/02/19 08/02/19 12:20 08:15 08:15 WBC 2.7 L RBC 3.42 L Hgb 10.9 L Hct 33.2 L MCV 97.0 H MCH 31.8 MCHC 32.8 RDW 15.7 Plt Count 153 D MPV 8.5 Sodium 138 Potassium 3.6 Chloride 107 Carbon Dioxide 24 Anion Gap 7 L BUN 5.5 L Creatinine 0.8 Est GFR (CKD-EPI)AfAm 122.43 Est GFR (CKD-EPI)NonAf 105.63 Random Glucose 83 Calcium 7.7 L Total Bilirubin 0.3 AST 132 H ALT 92 H Alkaline Phosphatase 102 Total Protein 6.5 Albumin 2.3 L Urine Color Urine Appearance Urine pH Ur Specific [place] Urine Protein Urine Glucose (UA) Urine Ketones Urine Blood Urine Nitrite Urine Bilirubin Urine Urobilinogen Ur Leukocyte Esterase RPR Titer Nonreactive 08/02/19 08/03/19 08/07/19 21:20 08:00 08:05 WBC 4.2 RBC 3.72 L Hgb 11.8 Hct 36.6 MCV 98.3 H MCH 31.7 MCHC 32.3 RDW 16.2 H Plt Count 204 D MPV 8.7 Sodium 137 Potassium 4.1 Chloride 107 Carbon Dioxide 30 Anion Gap 1 L BUN 14.9 Creatinine 0.8 Est GFR (CKD-EPI)AfAm 122.43 Est GFR (CKD-EPI)NonAf 105.63 Random Glucose 86 Calcium 7.7 L Total Bilirubin 0.2 AST 73 H ALT 76 H Alkaline Phosphatase 144 H Total Protein 7.0 Albumin 2.4 L Urine Color Yellow Urine Appearance Cloudy Urine pH 8.0 Ur Specific [place] 1.018 Urine Protein Trace Urine Glucose (UA) Negative Urine Ketones Negative Urine Blood Negative Urine Nitrite Negative Urine Bilirubin Negative Urine Urobilinogen 1.0 Ur Leukocyte Esterase Negative RPR Titer PE: ALERT AND ORIENTED X 3, APPEARS THIN AGITATED AT TIMES SKIN JAUNDICE, WARM AND DRY +PERRLA, EOMS INTACT BL + TENDERNESS TO MID TO LOWER BACK AREA EXT FULL ROM, AMB AD ESAU NO TREMORS A/P: LBP INA/THC DEPENDENCE WILL CHECK UA DUE TO NEGATIVE URINE TOX, WILL NOT ORDER SUBOXONE-PATIENT EXPLAINED REASONING AND IS IN AGREEMENT WITH PLAN ENCOURAGE ORAL FLUIDS ADD LOW DOSE FLEXERIL 5MG BID FOR PAIN MANAGEMENT
[2019-08-07] MEDS: CYCLOBENZAPRINE HCL 5 MG TABLET PO SCH ×2 (14:26→21:44)
[2019-08-07 17:42] LABS: EPI CELLS 1.6 /HPF (0-5/HPF); HYALINE CASTS 12 /lpf (0-8); URINE APPEARANCE CLOUDY; URINE BACTERIA 1.9 /hpf (NEGATIVE); URINE BILIRUBIN 1+ (NEGATIVE); URINE COLOR DK YELLOW; URINE GLUCOSE (UA) NEGATIVE (NEGATIVE); URINE KETONE TRACE (NEGATIVE); URINE LEUK ESTERASE NEGATIVE (NEGATIVE); URINE NITRITE NEGATIVE (NEGATIVE); URINE PROTEIN 1+ (NEGATIVE); URINE RBC 2 /hpf (0-4); URINE WBC 1 /hpf (0-5)
[2019-08-07] MEDS: traZODone HCL 50 MG TABLET (FP) PO SCH (21:44)
[2019-08-07] MEDS: MELATONIN 5 MG TABLETS PO PRN (21:45)
[2019-08-07] MEDS: LIDOCAINE PATCH REMOVAL MC SCH (21:45)
[2019-08-07] MEDS: THIAMINE HCL 100 MG TABLET (FP) PO SCH (21:45)
[2019-08-08] MEDS: ACETAMINOPHEN 325 MG TABLET (FP) PO PRN ×2 (02:39→09:53)
[2019-08-08] MEDS: hydrOXYzine PAMOATE 50 MG CAPSULE (FP) PO PRN ×3 (02:40→21:09)
[2019-08-08] MEDS: CITALOPRAM HYDROBROMIDE 10 MG TABLET PO SCH (09:53)
[2019-08-08] MEDS: LIDOCAINE 5% TOPICAL PATCH TP SCH (09:53)
[2019-08-08] MEDS: PRENATAL VITAMINS W/ FOLIC ACID TABLET (FP) PO SCH (09:53)
[2019-08-08] MEDS: CYCLOBENZAPRINE HCL 5 MG TABLET PO SCH ×2 (09:53→21:08)
[2019-08-08] MEDS: BACITRACIN 15 GM TUBE TOPICAL OINTMENT TP SCH ×2 (09:54→21:10)
[2019-08-08] MEDS: NICOTINE 14 MG/24 HOURS TOPICAL PATCH TD SCH (09:54)
[2019-08-08] MEDS ORDERED: FLUCONAZOLE 100 MG TABLET (UD) PO ONE (10:28)
--- NOTE | 2019-08-08 10:38 | PN ---
[facility] Progress Note Note: #1: Pt states he has been using opioids in the past. Would like suboxone. Urine tox here was neg for opioids. DUR/ISTOP shows a past prescription for suboxone from 04/[address] Kang Suboxone 8mg/day ordered #2: Pt also c/o of thrush and dysphagia- burning in throat. Has HIV- CD4-0 and VL 200K per pt. PE- oral whitish patches H and PE c/w Esophageal candidiasis- will start Fluconazole. d/w pt to decrease use of tylenol- has increased liver enzymes exercise for back pain encouraged
[2019-08-08] MEDS: BUPRENORPHINE/NALOXONE 8 MG/2 MG FILM PACKET SL SCH (11:37)
[2019-08-08] MEDS: THIAMINE HCL 100 MG TABLET (FP) PO SCH (21:08)
[2019-08-08] MEDS: LIDOCAINE PATCH REMOVAL MC SCH (21:08)
[2019-08-08] MEDS: traZODone HCL 50 MG TABLET (FP) PO SCH (21:08)
[2019-08-09] MEDS: ACETAMINOPHEN 325 MG TABLET (FP) PO PRN (06:51)
[2019-08-09] MEDS: CYCLOBENZAPRINE HCL 5 MG TABLET PO SCH ×2 (09:48→21:28)
[2019-08-09] MEDS: PRENATAL VITAMINS W/ FOLIC ACID TABLET (FP) PO SCH (09:48)
[2019-08-09] MEDS: FLUCONAZOLE 100 MG TABLET (UD) PO SCH (09:48)
[2019-08-09] MEDS: LIDOCAINE 5% TOPICAL PATCH TP SCH (09:48)
[2019-08-09] MEDS: CITALOPRAM HYDROBROMIDE 10 MG TABLET PO SCH (09:48)
[2019-08-09] MEDS: BACITRACIN 15 GM TUBE TOPICAL OINTMENT TP SCH ×2 (09:49→21:29)
[2019-08-09] MEDS: BUPRENORPHINE/NALOXONE 8 MG/2 MG FILM PACKET SL SCH (09:49)
[2019-08-09] MEDS: NICOTINE 14 MG/24 HOURS TOPICAL PATCH TD SCH (09:51)
[2019-08-09] MEDS: MELATONIN 5 MG TABLETS PO PRN (21:27)
[2019-08-09] MEDS: THIAMINE HCL 100 MG TABLET (FP) PO SCH (21:27)
[2019-08-09] MEDS: hydrOXYzine PAMOATE 50 MG CAPSULE (FP) PO PRN (21:28)
[2019-08-09] MEDS: LIDOCAINE PATCH REMOVAL MC SCH (21:28)
[2019-08-09] MEDS: traZODone HCL 50 MG TABLET (FP) PO SCH (21:28)
[2019-08-10] MEDS: PRENATAL VITAMINS W/ FOLIC ACID TABLET (FP) PO SCH (09:45)
[2019-08-10] MEDS: FLUCONAZOLE 100 MG TABLET (UD) PO SCH (09:45)
[2019-08-10] MEDS: CYCLOBENZAPRINE HCL 5 MG TABLET PO SCH ×2 (09:45→21:09)
[2019-08-10] MEDS: BUPRENORPHINE/NALOXONE 8 MG/2 MG FILM PACKET SL SCH (09:45)
[2019-08-10] MEDS: BACITRACIN 15 GM TUBE TOPICAL OINTMENT TP SCH ×2 (09:45→21:10)
[2019-08-10] MEDS: CITALOPRAM HYDROBROMIDE 10 MG TABLET PO SCH (09:45)
[2019-08-10] MEDS: LIDOCAINE 5% TOPICAL PATCH TP SCH (09:46)
[2019-08-10] MEDS: NICOTINE 14 MG/24 HOURS TOPICAL PATCH TD SCH (09:46)
[2019-08-10] MEDS: THIAMINE HCL 100 MG TABLET (FP) PO SCH (21:08)
[2019-08-10] MEDS: MELATONIN 5 MG TABLETS PO PRN (21:08)
[2019-08-10] MEDS: LIDOCAINE PATCH REMOVAL MC SCH (21:09)
[2019-08-10] MEDS: hydrOXYzine PAMOATE 50 MG CAPSULE (FP) PO PRN (21:09)
[2019-08-10] MEDS: traZODone HCL 50 MG TABLET (FP) PO SCH (21:09)
[2019-08-11] MEDS: LOPERAMIDE HCL 2 MG CAPSULE PO PRN (01:34)
[2019-08-11] MEDS: PRENATAL VITAMINS W/ FOLIC ACID TABLET (FP) PO SCH (09:44)
[2019-08-11] MEDS: CYCLOBENZAPRINE HCL 5 MG TABLET PO SCH ×2 (09:44→21:26)
[2019-08-11] MEDS: LIDOCAINE 5% TOPICAL PATCH TP SCH (09:45)
[2019-08-11] MEDS: FLUCONAZOLE 100 MG TABLET (UD) PO SCH (09:45)
[2019-08-11] MEDS: CITALOPRAM HYDROBROMIDE 10 MG TABLET PO SCH (09:45)
[2019-08-11] MEDS: NICOTINE 14 MG/24 HOURS TOPICAL PATCH TD SCH (09:47)
[2019-08-11] MEDS: BUPRENORPHINE/NALOXONE 8 MG/2 MG FILM PACKET SL SCH (09:47)
[2019-08-11] MEDS: BACITRACIN 15 GM TUBE TOPICAL OINTMENT TP SCH ×2 (09:47→21:27)
[2019-08-11] MEDS: THIAMINE HCL 100 MG TABLET (FP) PO SCH (21:26)
[2019-08-11] MEDS: MELATONIN 5 MG TABLETS PO PRN (21:27)
[2019-08-11] MEDS: LIDOCAINE PATCH REMOVAL MC SCH (21:27)
[2019-08-11] MEDS: traZODone HCL 50 MG TABLET (FP) PO SCH (21:27)
[2019-08-11] MEDS: hydrOXYzine PAMOATE 50 MG CAPSULE (FP) PO PRN (21:28)
[2019-08-12] MEDS: PRENATAL VITAMINS W/ FOLIC ACID TABLET (FP) PO SCH (09:49)
[2019-08-12] MEDS: FLUCONAZOLE 100 MG TABLET (UD) PO SCH (09:50)
[2019-08-12] MEDS: CITALOPRAM HYDROBROMIDE 10 MG TABLET PO SCH (09:50)
[2019-08-12] MEDS: CYCLOBENZAPRINE HCL 5 MG TABLET PO SCH ×2 (09:50→21:01)
[2019-08-12] MEDS: BACITRACIN 15 GM TUBE TOPICAL OINTMENT TP SCH ×2 (09:50→21:00)
[2019-08-12] MEDS: LIDOCAINE 5% TOPICAL PATCH TP SCH (09:52)
[2019-08-12] MEDS: BUPRENORPHINE/NALOXONE 8 MG/2 MG FILM PACKET SL SCH (09:52)
[2019-08-12] MEDS: NICOTINE 14 MG/24 HOURS TOPICAL PATCH TD SCH (09:53)
[2019-08-12] MEDS: ACETAMINOPHEN 325 MG TABLET (FP) PO PRN (13:45)
[2019-08-12] MEDS: THIAMINE HCL 100 MG TABLET (FP) PO SCH (21:01)
[2019-08-12] MEDS: traZODone HCL 50 MG TABLET (FP) PO SCH (21:01)
[2019-08-12] MEDS: LIDOCAINE PATCH REMOVAL MC SCH (21:01)
[2019-08-13] MEDS: ACETAMINOPHEN 325 MG TABLET (FP) PO PRN (07:05)
[2019-08-13] MEDS: FLUCONAZOLE 100 MG TABLET (UD) PO SCH (09:58)
[2019-08-13] MEDS: CITALOPRAM HYDROBROMIDE 10 MG TABLET PO SCH (09:58)
[2019-08-13] MEDS: BACITRACIN 15 GM TUBE TOPICAL OINTMENT TP SCH ×2 (09:58→21:33)
[2019-08-13] MEDS: CYCLOBENZAPRINE HCL 5 MG TABLET PO SCH ×2 (09:58→21:32)
[2019-08-13] MEDS: LIDOCAINE 5% TOPICAL PATCH TP SCH (09:58)
[2019-08-13] MEDS: PRENATAL VITAMINS W/ FOLIC ACID TABLET (FP) PO SCH (09:58)
[2019-08-13] MEDS: BUPRENORPHINE/NALOXONE 8 MG/2 MG FILM PACKET SL SCH (09:59)
[2019-08-13] MEDS: NICOTINE 14 MG/24 HOURS TOPICAL PATCH TD SCH (10:00)
[2019-08-13] MEDS: LIDOCAINE PATCH REMOVAL MC SCH (21:32)
[2019-08-13] MEDS: traZODone HCL 50 MG TABLET (FP) PO SCH (21:32)
[2019-08-13] MEDS: THIAMINE HCL 100 MG TABLET (FP) PO SCH (21:32)
[2019-08-14] MEDS: BUPRENORPHINE/NALOXONE 8 MG/2 MG FILM PACKET SL SCH (09:55)
[2019-08-14] MEDS: FLUCONAZOLE 100 MG TABLET (UD) PO SCH (09:55)
[2019-08-14] MEDS: BACITRACIN 15 GM TUBE TOPICAL OINTMENT TP SCH ×2 (09:55→21:06)
[2019-08-14] MEDS: NICOTINE 14 MG/24 HOURS TOPICAL PATCH TD SCH (09:55)
[2019-08-14] MEDS: PRENATAL VITAMINS W/ FOLIC ACID TABLET (FP) PO SCH (09:55)
[2019-08-14] MEDS: CITALOPRAM HYDROBROMIDE 10 MG TABLET PO SCH (09:55)
[2019-08-14] MEDS: CYCLOBENZAPRINE HCL 5 MG TABLET PO SCH ×2 (09:55→21:05)
[2019-08-14] MEDS: LIDOCAINE 5% TOPICAL PATCH TP SCH (09:56)
--- NOTE | 2019-08-14 10:42 | PN ---
[facility] Progress Note Note: Patient c/o numbness/tingling to feet. Patient states being treated with Gabapentin 100mg TID, last prescription date unknown. Laboratory Tests 08/01/19 08/02/19 08/02/19 12:20 08:15 08:15 WBC 2.7 L RBC 3.42 L Hgb 10.9 L Hct 33.2 L MCV 97.0 H MCH 31.8 MCHC 32.8 RDW 15.7 Plt Count 153 D MPV 8.5 Sodium 138 Potassium 3.6 Chloride 107 Carbon Dioxide 24 Anion Gap 7 L BUN 5.5 L Creatinine 0.8 Est GFR (CKD-EPI)AfAm 122.43 Est GFR (CKD-EPI)NonAf 105.63 Random Glucose 83 Calcium 7.7 L Total Bilirubin 0.3 AST 132 H ALT 92 H Alkaline Phosphatase 102 Total Protein 6.5 Albumin 2.3 L Urine Color Urine Appearance Urine pH Ur Specific [place] Urine Protein Urine Glucose (UA) Urine Ketones Urine Blood Urine Nitrite Urine Bilirubin Urine Urobilinogen Ur Leukocyte Esterase Urine WBC (Auto) Urine RBC (Auto) Urine Casts (Auto) U Epithel Cells (Auto) Urine Crystals (Auto) Urine Bacteria (Auto) RPR Titer Nonreactive 08/02/19 08/03/19 08/07/19 21:20 08:00 08:05 WBC 4.2 RBC 3.72 L Hgb 11.8 Hct 36.6 MCV 98.3 H MCH 31.7 MCHC 32.3 RDW 16.2 H Plt Count 204 D MPV 8.7 Sodium 137 Potassium 4.1 Chloride 107 Carbon Dioxide 30 Anion Gap 1 L BUN 14.9 Creatinine 0.8 Est GFR (CKD-EPI)AfAm 122.43 Est GFR (CKD-EPI)NonAf 105.63 Random Glucose 86 Calcium 7.7 L Total Bilirubin 0.2 AST 73 H ALT 76 H Alkaline Phosphatase 144 H Total Protein 7.0 Albumin 2.4 L Urine Color Yellow Urine Appearance Cloudy Urine pH 8.0 Ur Specific [place] 1.018 Urine Protein Trace Urine Glucose (UA) Negative Urine Ketones Negative Urine Blood Negative Urine Nitrite Negative Urine Bilirubin Negative Urine Urobilinogen 1.0 Ur Leukocyte Esterase Negative Urine WBC (Auto) Urine RBC (Auto) Urine Casts (Auto) U Epithel Cells (Auto) Urine Crystals (Auto) Urine Bacteria (Auto) RPR Titer 08/07/19 15:00 WBC RBC Hgb Hct MCV MCH MCHC RDW Plt Count MPV Sodium Potassium Chloride Carbon Dioxide Anion Gap BUN Creatinine Est GFR (CKD-EPI)AfAm Est GFR (CKD-EPI)NonAf Random Glucose Calcium Total Bilirubin AST ALT Alkaline Phosphatase Total Protein Albumin Urine Color Dk yellow Urine Appearance Cloudy Urine pH 6.0 D Ur Specific [place] 1.043 H Urine Protein 1+ H Urine Glucose (UA) Negative Urine Ketones Trace H Urine Blood Negative Urine Nitrite Negative Urine Bilirubin 1+ H Urine Urobilinogen 1.0 Ur Leukocyte Esterase Negative Urine WBC (Auto) 1 Urine RBC (Auto) 2 Urine Casts (Auto) 12 U Epithel Cells (Auto) 1.6 Urine Crystals (Auto) Urine Bacteria (Auto) 1.9 RPR Titer Vital Signs Temperature 97.8 F 08/14/19 06:42 Pulse Rate 68 08/14/19 06:42 Respiratory Rate 18 08/14/19 06:42 Blood Pressure 101/70 08/14/19 06:42 O2 Sat by Pulse Oximetry (%) PE: alert and oriented x 3 skin warm and dry bilateral feet with trace edema, +pedal pulses amb ad stefano no redness or open areas A/P: peripheral neuropathies will order gabapentin 100mg po tid monitor clinically
[2019-08-14] MEDS: GABAPENTIN 100 MG CAPSULE PO SCH ×2 (13:57→21:05)
[2019-08-14] MEDS: MELATONIN 5 MG TABLETS PO PRN (21:05)
[2019-08-14] MEDS: THIAMINE HCL 100 MG TABLET (FP) PO SCH (21:05)
[2019-08-14] MEDS: traZODone HCL 50 MG TABLET (FP) PO SCH (21:05)
[2019-08-14] MEDS: LIDOCAINE PATCH REMOVAL MC SCH (21:06)
[2019-08-15] MEDS: GABAPENTIN 100 MG CAPSULE PO SCH ×3 (07:08→21:34)
[2019-08-15] MEDS: PRENATAL VITAMINS W/ FOLIC ACID TABLET (FP) PO SCH (09:51)
[2019-08-15] MEDS: CITALOPRAM HYDROBROMIDE 10 MG TABLET PO SCH (09:52)
[2019-08-15] MEDS: CYCLOBENZAPRINE HCL 5 MG TABLET PO SCH ×2 (09:52→21:34)
[2019-08-15] MEDS: FLUCONAZOLE 100 MG TABLET (UD) PO SCH (09:52)
[2019-08-15] MEDS: BACITRACIN 15 GM TUBE TOPICAL OINTMENT TP SCH ×2 (09:52→21:35)
[2019-08-15] MEDS: LIDOCAINE 5% TOPICAL PATCH TP SCH (09:52)
[2019-08-15] MEDS: BUPRENORPHINE/NALOXONE 8 MG/2 MG FILM PACKET SL SCH (09:53)
[2019-08-15] MEDS: NICOTINE 14 MG/24 HOURS TOPICAL PATCH TD SCH (09:53)
[2019-08-15] MEDS: THIAMINE HCL 100 MG TABLET (FP) PO SCH (21:34)
[2019-08-15] MEDS: MELATONIN 5 MG TABLETS PO PRN (21:34)
[2019-08-15] MEDS: LIDOCAINE PATCH REMOVAL MC SCH (21:35)
[2019-08-15] MEDS: traZODone HCL 50 MG TABLET (FP) PO SCH (21:35)
[2019-08-16] MEDS: GABAPENTIN 100 MG CAPSULE PO SCH ×3 (06:07→21:08)
[2019-08-16] MEDS: LIDOCAINE 5% TOPICAL PATCH TP SCH (09:28)
[2019-08-16] MEDS: PRENATAL VITAMINS W/ FOLIC ACID TABLET (FP) PO SCH (09:29)
[2019-08-16] MEDS: FLUCONAZOLE 100 MG TABLET (UD) PO SCH (09:29)
[2019-08-16] MEDS: NICOTINE 14 MG/24 HOURS TOPICAL PATCH TD SCH (09:29)
[2019-08-16] MEDS: CYCLOBENZAPRINE HCL 5 MG TABLET PO SCH ×2 (09:29→21:08)
[2019-08-16] MEDS: CITALOPRAM HYDROBROMIDE 10 MG TABLET PO SCH (09:29)
[2019-08-16] MEDS: BUPRENORPHINE/NALOXONE 8 MG/2 MG FILM PACKET SL SCH (10:43)
[2019-08-16] MEDS: BACITRACIN 15 GM TUBE TOPICAL OINTMENT TP SCH ×2 (10:43→21:09)
[2019-08-16] MEDS: traZODone HCL 50 MG TABLET (FP) PO SCH (21:08)
[2019-08-16] MEDS: THIAMINE HCL 100 MG TABLET (FP) PO SCH (21:08)
[2019-08-16] MEDS: MELATONIN 5 MG TABLETS PO PRN (21:08)
[2019-08-16] MEDS: LIDOCAINE PATCH REMOVAL MC SCH (21:09)
[2019-08-17] MEDS: GABAPENTIN 100 MG CAPSULE PO SCH ×3 (05:48→21:26)
[2019-08-17] MEDS: PRENATAL VITAMINS W/ FOLIC ACID TABLET (FP) PO SCH (09:45)
[2019-08-17] MEDS: CITALOPRAM HYDROBROMIDE 10 MG TABLET PO SCH (09:45)
[2019-08-17] MEDS: BUPRENORPHINE/NALOXONE 8 MG/2 MG FILM PACKET SL SCH (09:45)
[2019-08-17] MEDS: CYCLOBENZAPRINE HCL 5 MG TABLET PO SCH ×2 (09:45→21:26)
[2019-08-17] MEDS: BACITRACIN 15 GM TUBE TOPICAL OINTMENT TP SCH ×2 (09:45→21:26)
[2019-08-17] MEDS: LIDOCAINE 5% TOPICAL PATCH TP SCH (09:46)
[2019-08-17] MEDS: FLUCONAZOLE 100 MG TABLET (UD) PO SCH (09:48)
[2019-08-17] MEDS: NICOTINE 14 MG/24 HOURS TOPICAL PATCH TD SCH (10:29)
[2019-08-17] MEDS: THIAMINE HCL 100 MG TABLET (FP) PO SCH (21:26)
[2019-08-17] MEDS: traZODone HCL 50 MG TABLET (FP) PO SCH (21:26)
[2019-08-17] MEDS: MELATONIN 5 MG TABLETS PO PRN (21:27)
[2019-08-17] MEDS: LIDOCAINE PATCH REMOVAL MC SCH (22:06)
[2019-08-18] MEDS: GABAPENTIN 100 MG CAPSULE PO SCH ×3 (06:19→21:38)
[2019-08-18] MEDS: CITALOPRAM HYDROBROMIDE 10 MG TABLET PO SCH (09:59)
[2019-08-18] MEDS: BACITRACIN 15 GM TUBE TOPICAL OINTMENT TP SCH ×2 (09:59→21:39)
[2019-08-18] MEDS: CYCLOBENZAPRINE HCL 5 MG TABLET PO SCH ×2 (09:59→21:38)
[2019-08-18] MEDS: BUPRENORPHINE/NALOXONE 8 MG/2 MG FILM PACKET SL SCH (09:59)
[2019-08-18] MEDS: PRENATAL VITAMINS W/ FOLIC ACID TABLET (FP) PO SCH (09:59)
[2019-08-18] MEDS: NICOTINE 14 MG/24 HOURS TOPICAL PATCH TD SCH (10:00)
[2019-08-18] MEDS: FLUCONAZOLE 100 MG TABLET (UD) PO SCH (10:00)
[2019-08-18] MEDS: LIDOCAINE 5% TOPICAL PATCH TP SCH (10:00)
[2019-08-18] MEDS: MELATONIN 5 MG TABLETS PO PRN (21:38)
[2019-08-18] MEDS: THIAMINE HCL 100 MG TABLET (FP) PO SCH (21:38)
[2019-08-18] MEDS: traZODone HCL 50 MG TABLET (FP) PO SCH (21:39)
[2019-08-18] MEDS: LIDOCAINE PATCH REMOVAL MC SCH (21:39)
[2019-08-19] MEDS: GABAPENTIN 100 MG CAPSULE PO SCH ×3 (06:06→21:10)
[2019-08-19] MEDS: BACITRACIN 15 GM TUBE TOPICAL OINTMENT TP SCH ×2 (09:25→21:11)
[2019-08-19] MEDS: FLUCONAZOLE 100 MG TABLET (UD) PO SCH (09:26)
[2019-08-19] MEDS: CYCLOBENZAPRINE HCL 5 MG TABLET PO SCH ×2 (09:26→21:10)
[2019-08-19] MEDS: BUPRENORPHINE/NALOXONE 8 MG/2 MG FILM PACKET SL SCH (09:26)
[2019-08-19] MEDS: NICOTINE 14 MG/24 HOURS TOPICAL PATCH TD SCH (09:26)
[2019-08-19] MEDS: LIDOCAINE 5% TOPICAL PATCH TP SCH (09:26)
[2019-08-19] MEDS: PRENATAL VITAMINS W/ FOLIC ACID TABLET (FP) PO SCH (09:26)
[2019-08-19] MEDS: CITALOPRAM HYDROBROMIDE 10 MG TABLET PO SCH (09:26)
[2019-08-19] MEDS: THIAMINE HCL 100 MG TABLET (FP) PO SCH (21:10)
[2019-08-19] MEDS: MELATONIN 5 MG TABLETS PO PRN (21:10)
[2019-08-19] MEDS: traZODone HCL 50 MG TABLET (FP) PO SCH (21:11)
[2019-08-19] MEDS: LIDOCAINE PATCH REMOVAL MC SCH (21:11)
[2019-08-20] MEDS: GABAPENTIN 100 MG CAPSULE PO SCH ×3 (06:07→21:33)
[2019-08-20] MEDS: CITALOPRAM HYDROBROMIDE 10 MG TABLET PO SCH (09:34)
[2019-08-20] MEDS: PRENATAL VITAMINS W/ FOLIC ACID TABLET (FP) PO SCH (09:34)
[2019-08-20] MEDS: FLUCONAZOLE 100 MG TABLET (UD) PO SCH (09:34)
[2019-08-20] MEDS: BACITRACIN 15 GM TUBE TOPICAL OINTMENT TP SCH ×2 (09:34→21:33)
[2019-08-20] MEDS: BUPRENORPHINE/NALOXONE 8 MG/2 MG FILM PACKET SL SCH (09:34)
[2019-08-20] MEDS: LIDOCAINE 5% TOPICAL PATCH TP SCH (09:34)
[2019-08-20] MEDS: CYCLOBENZAPRINE HCL 5 MG TABLET PO SCH ×2 (09:34→21:33)
[2019-08-20] MEDS: NICOTINE 14 MG/24 HOURS TOPICAL PATCH TD SCH (09:34)
[2019-08-20] MEDS: traZODone HCL 50 MG TABLET (FP) PO SCH (21:33)
[2019-08-20] MEDS: MELATONIN 5 MG TABLETS PO PRN (21:33)
[2019-08-20] MEDS: THIAMINE HCL 100 MG TABLET (FP) PO SCH (21:33)
[2019-08-20] MEDS: LIDOCAINE PATCH REMOVAL MC SCH (21:34)
[2019-08-21] MEDS: GABAPENTIN 100 MG CAPSULE PO SCH ×3 (06:22→22:16)
[2019-08-21] MEDS: CYCLOBENZAPRINE HCL 5 MG TABLET PO SCH ×2 (09:35→22:16)
[2019-08-21] MEDS: CITALOPRAM HYDROBROMIDE 10 MG TABLET PO SCH (09:35)
[2019-08-21] MEDS: PRENATAL VITAMINS W/ FOLIC ACID TABLET (FP) PO SCH (09:35)
[2019-08-21] MEDS: FLUCONAZOLE 100 MG TABLET (UD) PO SCH (09:36)
[2019-08-21] MEDS: LIDOCAINE 5% TOPICAL PATCH TP SCH (09:36)
[2019-08-21] MEDS: BUPRENORPHINE/NALOXONE 8 MG/2 MG FILM PACKET SL SCH (09:36)
[2019-08-21] MEDS: BACITRACIN 15 GM TUBE TOPICAL OINTMENT TP SCH ×2 (09:38→22:18)
[2019-08-21] MEDS: NICOTINE 14 MG/24 HOURS TOPICAL PATCH TD SCH (09:38)
[2019-08-21] MEDS: THIAMINE HCL 100 MG TABLET (FP) PO SCH (22:17)
[2019-08-21] MEDS: traZODone HCL 50 MG TABLET (FP) PO SCH (22:17)
[2019-08-21] MEDS: LIDOCAINE PATCH REMOVAL MC SCH (22:18)
[2019-08-22] MEDS: GABAPENTIN 100 MG CAPSULE PO SCH ×3 (06:04→21:07)
[2019-08-22] MEDS: BACITRACIN 15 GM TUBE TOPICAL OINTMENT TP SCH ×2 (09:45→21:08)
[2019-08-22] MEDS: CYCLOBENZAPRINE HCL 5 MG TABLET PO SCH ×2 (09:45→21:06)
[2019-08-22] MEDS: PRENATAL VITAMINS W/ FOLIC ACID TABLET (FP) PO SCH (09:45)
[2019-08-22] MEDS: CITALOPRAM HYDROBROMIDE 10 MG TABLET PO SCH (09:45)
[2019-08-22] MEDS: FLUCONAZOLE 100 MG TABLET (UD) PO SCH (09:46)
[2019-08-22] MEDS: BUPRENORPHINE/NALOXONE 8 MG/2 MG FILM PACKET SL SCH (09:46)
[2019-08-22] MEDS: NICOTINE 14 MG/24 HOURS TOPICAL PATCH TD SCH (09:46)
[2019-08-22] MEDS: LIDOCAINE 5% TOPICAL PATCH TP SCH (09:46)
[2019-08-22] MEDS: MELATONIN 5 MG TABLETS PO PRN (21:06)
[2019-08-22] MEDS: THIAMINE HCL 100 MG TABLET (FP) PO SCH (21:06)
[2019-08-22] MEDS: LIDOCAINE PATCH REMOVAL MC SCH (21:07)
[2019-08-22] MEDS: traZODone HCL 50 MG TABLET (FP) PO SCH (21:07)
[2019-08-23] MEDS: GABAPENTIN 100 MG CAPSULE PO SCH ×3 (06:25→21:31)
[2019-08-23] MEDS: PRENATAL VITAMINS W/ FOLIC ACID TABLET (FP) PO SCH (09:49)
[2019-08-23] MEDS: CITALOPRAM HYDROBROMIDE 10 MG TABLET PO SCH (09:50)
[2019-08-23] MEDS: FLUCONAZOLE 100 MG TABLET (UD) PO SCH (09:50)
[2019-08-23] MEDS: LIDOCAINE 5% TOPICAL PATCH TP SCH (09:50)
[2019-08-23] MEDS: CYCLOBENZAPRINE HCL 5 MG TABLET PO SCH ×2 (09:50→21:31)
[2019-08-23] MEDS: BUPRENORPHINE/NALOXONE 8 MG/2 MG FILM PACKET SL SCH (09:52)
[2019-08-23] MEDS: NICOTINE 14 MG/24 HOURS TOPICAL PATCH TD SCH (09:52)
[2019-08-23] MEDS: BACITRACIN 15 GM TUBE TOPICAL OINTMENT TP SCH ×2 (10:31→21:32)
[2019-08-23] MEDS: THIAMINE HCL 100 MG TABLET (FP) PO SCH (21:30)
[2019-08-23] MEDS: traZODone HCL 50 MG TABLET (FP) PO SCH (21:31)
[2019-08-23] MEDS: MELATONIN 5 MG TABLETS PO PRN (21:31)
[2019-08-23] MEDS: LIDOCAINE PATCH REMOVAL MC SCH (21:32)
[2019-08-24] MEDS: GABAPENTIN 100 MG CAPSULE PO SCH ×3 (06:07→21:09)
[2019-08-24] MEDS: LIDOCAINE 5% TOPICAL PATCH TP SCH (09:44)
[2019-08-24] MEDS: CYCLOBENZAPRINE HCL 5 MG TABLET PO SCH ×2 (09:44→21:09)
[2019-08-24] MEDS: CITALOPRAM HYDROBROMIDE 10 MG TABLET PO SCH (09:44)
[2019-08-24] MEDS: BUPRENORPHINE/NALOXONE 8 MG/2 MG FILM PACKET SL SCH (09:44)
[2019-08-24] MEDS: PRENATAL VITAMINS W/ FOLIC ACID TABLET (FP) PO SCH (09:44)
[2019-08-24] MEDS: BACITRACIN 15 GM TUBE TOPICAL OINTMENT TP SCH ×2 (09:44→21:09)
[2019-08-24] MEDS: FLUCONAZOLE 100 MG TABLET (UD) PO SCH (09:44)
[2019-08-24] MEDS: NICOTINE 14 MG/24 HOURS TOPICAL PATCH TD SCH (09:44)
[2019-08-24] MEDS: THIAMINE HCL 100 MG TABLET (FP) PO SCH (21:09)
[2019-08-24] MEDS: traZODone HCL 50 MG TABLET (FP) PO SCH (21:09)
[2019-08-24] MEDS: MELATONIN 5 MG TABLETS PO PRN (21:09)
[2019-08-24] MEDS: LIDOCAINE PATCH REMOVAL MC SCH (21:09)
[2019-08-25] MEDS: GABAPENTIN 100 MG CAPSULE PO SCH ×3 (06:15→21:29)
[2019-08-25] MEDS: LIDOCAINE 5% TOPICAL PATCH TP SCH (10:05)
[2019-08-25] MEDS: BUPRENORPHINE/NALOXONE 8 MG/2 MG FILM PACKET SL SCH (10:05)
[2019-08-25] MEDS: CITALOPRAM HYDROBROMIDE 10 MG TABLET PO SCH (10:05)
[2019-08-25] MEDS: PRENATAL VITAMINS W/ FOLIC ACID TABLET (FP) PO SCH (10:05)
[2019-08-25] MEDS: CYCLOBENZAPRINE HCL 5 MG TABLET PO SCH ×2 (10:05→21:29)
[2019-08-25] MEDS: FLUCONAZOLE 100 MG TABLET (UD) PO SCH (10:06)
[2019-08-25] MEDS: BACITRACIN 15 GM TUBE TOPICAL OINTMENT TP SCH ×2 (10:07→21:30)
[2019-08-25] MEDS: NICOTINE 14 MG/24 HOURS TOPICAL PATCH TD SCH (10:07)
[2019-08-25] MEDS: ACETAMINOPHEN 325 MG TABLET (FP) PO PRN (13:31)
[2019-08-25] MEDS: THIAMINE HCL 100 MG TABLET (FP) PO SCH (21:29)
[2019-08-25] MEDS: MELATONIN 5 MG TABLETS PO PRN (21:29)
[2019-08-25] MEDS: LIDOCAINE PATCH REMOVAL MC SCH (21:30)
[2019-08-25] MEDS: traZODone HCL 50 MG TABLET (FP) PO SCH (21:30)
[2019-08-26] MEDS: GABAPENTIN 100 MG CAPSULE PO SCH ×3 (06:02→21:12)
[2019-08-26] MEDS: BUPRENORPHINE/NALOXONE 8 MG/2 MG FILM PACKET SL SCH (09:38)
[2019-08-26] MEDS: FLUCONAZOLE 100 MG TABLET (UD) PO SCH (09:38)
[2019-08-26] MEDS: PRENATAL VITAMINS W/ FOLIC ACID TABLET (FP) PO SCH (09:38)
[2019-08-26] MEDS: CITALOPRAM HYDROBROMIDE 10 MG TABLET PO SCH (09:39)
[2019-08-26] MEDS: BACITRACIN 15 GM TUBE TOPICAL OINTMENT TP SCH ×2 (09:40→22:25)
[2019-08-26] MEDS: CYCLOBENZAPRINE HCL 5 MG TABLET PO SCH ×2 (09:40→21:12)
[2019-08-26] MEDS: LIDOCAINE 5% TOPICAL PATCH TP SCH (09:41)
[2019-08-26] MEDS: NICOTINE 14 MG/24 HOURS TOPICAL PATCH TD SCH (09:42)
[2019-08-26] MEDS: traZODone HCL 50 MG TABLET (FP) PO SCH (21:12)
[2019-08-26] MEDS: THIAMINE HCL 100 MG TABLET (FP) PO SCH (21:12)
[2019-08-26] MEDS: LIDOCAINE PATCH REMOVAL MC SCH (22:25)
[2019-08-27] MEDS: GABAPENTIN 100 MG CAPSULE PO SCH ×3 (06:21→21:37)
[2019-08-27] MEDS: PRENATAL VITAMINS W/ FOLIC ACID TABLET (FP) PO SCH (09:52)
[2019-08-27] MEDS: BUPRENORPHINE/NALOXONE 8 MG/2 MG FILM PACKET SL SCH (09:52)
[2019-08-27] MEDS: CYCLOBENZAPRINE HCL 5 MG TABLET PO SCH ×2 (09:52→21:37)
[2019-08-27] MEDS: CITALOPRAM HYDROBROMIDE 10 MG TABLET PO SCH (09:52)
[2019-08-27] MEDS: FLUCONAZOLE 100 MG TABLET (UD) PO SCH (09:52)
[2019-08-27] MEDS: NICOTINE 14 MG/24 HOURS TOPICAL PATCH TD SCH (09:54)
[2019-08-27] MEDS: LIDOCAINE 5% TOPICAL PATCH TP SCH (09:54)
[2019-08-27] MEDS: BACITRACIN 15 GM TUBE TOPICAL OINTMENT TP SCH ×2 (09:54→21:37)
[2019-08-27] MEDS: MELATONIN 5 MG TABLETS PO PRN (21:36)
[2019-08-27] MEDS: THIAMINE HCL 100 MG TABLET (FP) PO SCH (21:36)
[2019-08-27] MEDS: LIDOCAINE PATCH REMOVAL MC SCH (21:37)
[2019-08-27] MEDS: traZODone HCL 50 MG TABLET (FP) PO SCH (21:37)
[2019-08-28] MEDS: GABAPENTIN 100 MG CAPSULE PO SCH ×3 (06:27→21:22)
[2019-08-28] MEDS: PRENATAL VITAMINS W/ FOLIC ACID TABLET (FP) PO SCH (09:33)
[2019-08-28] MEDS: BUPRENORPHINE/NALOXONE 8 MG/2 MG FILM PACKET SL SCH (09:33)
[2019-08-28] MEDS: LIDOCAINE 5% TOPICAL PATCH TP SCH (09:33)
[2019-08-28] MEDS: CITALOPRAM HYDROBROMIDE 10 MG TABLET PO SCH (09:33)
[2019-08-28] MEDS: CYCLOBENZAPRINE HCL 5 MG TABLET PO SCH ×2 (09:33→21:22)
[2019-08-28] MEDS: BACITRACIN 15 GM TUBE TOPICAL OINTMENT TP SCH ×2 (09:34→21:23)
[2019-08-28] MEDS: NICOTINE 14 MG/24 HOURS TOPICAL PATCH TD SCH (09:34)
[2019-08-28] MEDS: FLUCONAZOLE 100 MG TABLET (UD) PO SCH (09:35)
--- NOTE | 2019-08-28 10:02 | PN ---
[facility] Progress Note Note: Patient is scheduled for discharge tomorrow. Scripts for 30 days supply of medications(Celexa 10 mg/day, Trazadone 25 mg/hs) will be electronically transmitted to [facility] at [address] [place] [address]
--- NOTE | 2019-08-28 10:45 | DS ---
[facility] Rehab Discharge Summary - [facility] Rehab Discharge Summary Admission Date: 08/01/19 Discharge Date: 08/28/19 - History Present History: Alcohol dependence, Opioid dependence (Heroin abuse.) Pertinent Past History: this 48 years old male with alcohol,cocaine,marijuana, clear by [facility] ER to return for rehab denied seizure no syncope hiv positive since 1996 - Discharge Physical Exam Vital Signs: Vital Signs Temperature 97.6 F 08/28/19 07:09 Pulse Rate 61 08/28/19 07:09 Respiratory Rate 18 08/28/19 07:09 Blood Pressure 100/67 08/28/19 07:09 O2 Sat by Pulse Oximetry (%) Pertinent Admission Physical Exam Findings: Physical General Appearance: No Apparent Distress HEENTM: TOI, Respiratory: Lungs Clear, Neck: Supple, Trachea in good position Cardiology: S1, S2, Abdominal: + Bowel Sounds, Non Tender, Soft Neurological:copier field service technician II-XII NML intact, - Treatment Discharge Condition: Discharge condition good (Medically stable for discharge.) Hospital Course: Patient attended groups, had 1:1 with his counselor, was seen by the psychiatric service. he had back pain while in rehab, that was treated. - Medication Discharge Medications: Ambulatory Orders Risperidone 1 mg PO DAILY 07/31/19 traZODone HCL [Trazodone HCl] 100 mg PO DAILY 07/31/19 Gabapentin [Neurontin -] 300 mg PO Q8H 08/01/19 Citalopram Hydrobromide [Celexa -] 10 mg PO DAILY #30 tablet 08/28/19 Darunavir Ethanolate [Prezista -] 800 mg PO DAILY #30 tablet 08/28/19 Emtricitabine/Tenofov Alafenam [Descovy 200-25 mg Tablet (Nf)] 1 each PO DAILY # 30 tablet 08/28/19 Ritonavir 100 mg PO DAILY #30 tablet 08/28/19 Sulfamethoxazole/Trimethoprim [Bactrim DS -] 800 mg PO DAILY #30 tablet traZODone HCL [Desyrel -] 25 mg PO HS #14 tablet 08/28/19 - Medication-Assisted Treatment (MAT) Medication-Assisted Treatment (MAT): Yes Medication Prescribed: Buprenorphine (Patient will go to [facility] for aftercare.) MAT Follow-up Referral: Pt will go to [facility]. - Discharge Instructions Diet, activity, other medical instructions: Diet: as tolerated Activity: as tolerated Other medical instructions:Please follow up with aftercare referral. 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
[2019-08-28] MEDS: MELATONIN 5 MG TABLETS PO PRN (21:22)
[2019-08-28] MEDS: THIAMINE HCL 100 MG TABLET (FP) PO SCH (21:22)
[2019-08-28] MEDS: LIDOCAINE PATCH REMOVAL MC SCH (21:22)
[2019-08-28] MEDS: traZODone HCL 50 MG TABLET (FP) PO SCH (21:22)
[2019-08-29] MEDS: GABAPENTIN 100 MG CAPSULE PO SCH (06:16)
[2019-08-29 06:34] VITALS: BP 94/62; PULSE 60; TEMP 97.9
[2019-08-29] MEDS: CITALOPRAM HYDROBROMIDE 10 MG TABLET PO SCH (09:32)
[2019-08-29] MEDS: CYCLOBENZAPRINE HCL 5 MG TABLET PO SCH (09:32)
[2019-08-29] MEDS: PRENATAL VITAMINS W/ FOLIC ACID TABLET (FP) PO SCH (09:32)
[2019-08-29] MEDS: LIDOCAINE 5% TOPICAL PATCH TP SCH (09:32)
[2019-08-29] MEDS: BUPRENORPHINE/NALOXONE 8 MG/2 MG FILM PACKET SL SCH (09:35)
[2019-08-29] MEDS: BACITRACIN 15 GM TUBE TOPICAL OINTMENT TP SCH (09:35)
[2019-08-29] MEDS: NICOTINE 14 MG/24 HOURS TOPICAL PATCH TD SCH (09:35)
== END 2019-08-29 09:35 | disposition home or self-care (01) | DRG 772 ==
LOC: YASAS 08:27 → Y3W 10:09
PROVIDERS: ADMIT Neuromusculoskeletal Medicine & OMM; ATTEND Neuromusculoskeletal Medicine & OMM
PROC: HZ42ZZZ Group Counseling for Substance Abuse Treatment, Cognitive-Behavioral (ICD-10-PCS; principal; 2019-08-01)
DX: F10.20 Alcohol dependence, uncomplicated (principal); F11.10 Opioid abuse, uncomplicated; F14.20 Cocaine dependence, uncomplicated; F12.20 Cannabis dependence, uncomplicated; F17.210 Nicotine dependence, cigarettes, uncomplicated; F19.24 Other psychoactive substance dependence with psychoactive substance-induced mood disorder; F32.9 Major depressive disorder, single episode, unspecified; B20 Human immunodeficiency virus [HIV] disease; B37.0 Candidal stomatitis; G62.9 Polyneuropathy, unspecified; M54.5 Low back pain; G89.29 Other chronic pain; R94.5 Abnormal results of liver function studies; R00.1 Bradycardia, unspecified; G47.00 Insomnia, unspecified; Z88.6 Allergy status to analgesic agent; Z91.14 Patient's other noncompliance with medication regimen
CPT/HCPCS: 36415; 71260-TC; 80053; 81003; 85025; 85027; 85610; 86593; 87040; 93005; 93010; 96374; 99284-25; G0008; J0131; Q2036; Q9967

== ENCOUNTER 2022-07-15 16:55 | Inpatient (IN) | payer OTHER ==
[2022-07-15 17:45] VITALS: BMI 18.8
[2022-07-15] MEDS ORDERED: MAGNESIUM HYDROX 2400MG/30ML ORAL SUSPENSION 30 ML CUP PO PRN (18:42)
[2022-07-15] MEDS ORDERED: NALOXONE HCL (KLOXXADO) 8 MG SPRAY NS PRN (18:42)
[2022-07-15] MEDS ORDERED: POLYETHYLENE GLYCOL (HEALTHYLAX) 3350 17 GM PACKET PO PRN (18:42)
[2022-07-15] MEDS ORDERED: cloNIDine HCL 0.1 MG TABLET PO PRN (18:42)
[2022-07-15] MEDS ORDERED: DICYCLOMINE HCL 10 MG CAPSULE PO PRN (18:42)
[2022-07-15] MEDS ORDERED: LOPERAMIDE HCL 2 MG CAPSULE PO PRN (18:42)
[2022-07-15] MEDS ORDERED: NICOTINE 10 MG CARTRIDGE (INHALER) IH PRN (18:42)
[2022-07-15] MEDS ORDERED: BENZOCAINE/MENTHOL (CHLORASEPTIC ) LOZENGE MM PRN (18:42)
[2022-07-15] MEDS ORDERED: ACETAMINOPHEN 325 MG TABLET (FP) PO PRN (18:42)
[2022-07-15] MEDS ORDERED: MAG HYDROX/AL HYDROX/SIMETH 30 ML UNIT-DOSE CUP PO PRN (18:42)
[2022-07-15] MEDS ORDERED: methaDONE HCL 10 MG TABLET (FOR DETOX USE ONLY) PO ONE (19:30)
[2022-07-15] MEDS: GABAPENTIN 300 MG CAPSULE PO SCH (20:14)
[2022-07-15] MEDS: MELATONIN 5 MG TABLETS PO SCH (23:03)
[2022-07-15] MEDS: THIAMINE HCL 100 MG TABLET (FP) PO SCH (23:03)
[2022-07-15] MEDS: ACETAMINOPHEN 325 MG TABLET (FP) PO PRN (23:26)
[2022-07-16] MEDS: GABAPENTIN 300 MG CAPSULE PO SCH ×3 (04:35→21:55)
[2022-07-16] MEDS: ACETAMINOPHEN 325 MG TABLET (FP) PO PRN ×3 (05:36→19:54)
[2022-07-16] MEDS: METHOCARBAMOL 500 MG TABLET PO PRN (10:36)
[2022-07-16] MEDS: SULFAMETHOXAZOLE/TRIMETHOPRIM 800MG/160MG D.S. TABLET PO SCH (10:36)
[2022-07-16] MEDS: BICTEGRAV/EMTRICIT/TENOFOV (BIKTARVY) 50-200-25 MG TABLET PO SCH (10:38)
[2022-07-16] MEDS: NICOTINE 7 MG/24 HOURS TOPICAL PATCH TD SCH ×2 (11:13→11:19)
[2022-07-16] MEDS: CITALOPRAM HYDROBROMIDE 20 MG TABLET PO SCH (11:13)
[2022-07-16] MEDS: PRENATAL VITAMINS W/ FOLIC ACID TABLET (FP) PO SCH (11:13)
[2022-07-16 11:31] LABS: HEMATOCRIT 32.1 % (35.4-49); HEMOGLOBIN 10.3 GM/dL (11.7-16.9); MCH 28.3 pg (25.7-33.7); MCHC 32.2 g/dl (32.0-35.9); MEAN CELL VOLUME 87.9 fl (80-96); MEAN PLT VOLUME 7.8 fl (7.5-11.1); PLATELET COUNT 201 10^3/uL (134-434); RBC 3.65 M/mm3 (4.00-5.60); RDW 16.2 % (11.9-15.9); WHITE BLOOD COUNT 3.4 K/mm3 (4.0-10.0)
[2022-07-16 11:40] LABS: CALCIUM 7.9 mg/dL (8.5-10.1)
[2022-07-16 11:41] LABS: ALBUMIN 2.2 g/dl (3.4-5.0)
[2022-07-16 11:44] LABS: CREATININE 0.7 mg/dL (0.55-1.3)
[2022-07-16 11:46] LABS: BILIRUBIN,TOTAL 0.4 mg/dL (0.2-1); TOT PROT 6.5 g/dl (6.4-8.2)
[2022-07-16] MEDS: CLINDAMYCIN HCL 150 MG CAPSULE (FP) PO SCH ×2 (13:59→21:52)
[2022-07-16] MEDS: CLINDAMYCIN PHOSPHATE 1% TOPICAL GEL 30 GM TUBE TP SCH ×2 (15:42→22:03)
[2022-07-16] MEDS: traZODone HCL 100 MG TABLET (FP) PO SCH (21:51)
[2022-07-16] MEDS: MELATONIN 5 MG TABLETS PO SCH (21:51)
[2022-07-16] MEDS: THIAMINE HCL 100 MG TABLET (FP) PO SCH (21:52)
[2022-07-17] MEDS: CLINDAMYCIN HCL 150 MG CAPSULE (FP) PO SCH ×3 (05:34→21:34)
[2022-07-17] MEDS: GABAPENTIN 300 MG CAPSULE PO SCH ×3 (05:34→21:34)
[2022-07-17] MEDS: CALCIUM CARBONATE 650 MG TABLET PO SCH (11:00)
[2022-07-17] MEDS: CITALOPRAM HYDROBROMIDE 20 MG TABLET PO SCH (11:04)
[2022-07-17] MEDS: SULFAMETHOXAZOLE/TRIMETHOPRIM 800MG/160MG D.S. TABLET PO SCH (11:04)
[2022-07-17] MEDS: CLINDAMYCIN PHOSPHATE 1% TOPICAL GEL 30 GM TUBE TP SCH ×2 (11:04→23:12)
[2022-07-17] MEDS: BICTEGRAV/EMTRICIT/TENOFOV (BIKTARVY) 50-200-25 MG TABLET PO SCH (11:04)
[2022-07-17] MEDS: PRENATAL VITAMINS W/ FOLIC ACID TABLET (FP) PO SCH (11:05)
[2022-07-17] MEDS: methaDONE HCL 10 MG TABLET (FOR DETOX USE ONLY) PO ONE ×2 (11:05→11:06)
[2022-07-17] MEDS: NICOTINE 7 MG/24 HOURS TOPICAL PATCH TD SCH (11:05)
[2022-07-17] MEDS: ACETAMINOPHEN 325 MG TABLET (FP) PO PRN (12:33)
[2022-07-17] MEDS: METHOCARBAMOL 500 MG TABLET PO PRN ×2 (13:36→21:36)
[2022-07-17] MEDS: LIDOCAINE 5% TOPICAL PATCH TP SCH (16:58)
[2022-07-17] MEDS: THIAMINE HCL 100 MG TABLET (FP) PO SCH (21:34)
[2022-07-17] MEDS: LIDOCAINE PATCH REMOVAL MC SCH (21:34)
[2022-07-17] MEDS: traZODone HCL 100 MG TABLET (FP) PO SCH (21:34)
[2022-07-17] MEDS: MELATONIN 5 MG TABLETS PO SCH (21:46)
[2022-07-18] MEDS: GABAPENTIN 300 MG CAPSULE PO SCH ×3 (05:31→21:59)
[2022-07-18] MEDS: CLINDAMYCIN HCL 150 MG CAPSULE (FP) PO SCH ×3 (05:32→21:59)
[2022-07-18] MEDS: CITALOPRAM HYDROBROMIDE 20 MG TABLET PO SCH (09:40)
[2022-07-18] MEDS: BICTEGRAV/EMTRICIT/TENOFOV (BIKTARVY) 50-200-25 MG TABLET PO SCH (09:40)
[2022-07-18] MEDS: SULFAMETHOXAZOLE/TRIMETHOPRIM 800MG/160MG D.S. TABLET PO SCH (09:40)
[2022-07-18] MEDS: METHOCARBAMOL 500 MG TABLET PO PRN ×2 (09:40→17:59)
[2022-07-18] MEDS: CALCIUM CARBONATE 650 MG TABLET PO SCH (09:40)
[2022-07-18] MEDS: PRENATAL VITAMINS W/ FOLIC ACID TABLET (FP) PO SCH (09:40)
[2022-07-18] MEDS: LIDOCAINE 5% TOPICAL PATCH TP SCH (09:41)
[2022-07-18] MEDS: NICOTINE 7 MG/24 HOURS TOPICAL PATCH TD SCH (09:41)
[2022-07-18] MEDS: CLINDAMYCIN PHOSPHATE 1% TOPICAL GEL 30 GM TUBE TP SCH ×2 (10:43→22:00)
[2022-07-18] MEDS: ACETAMINOPHEN 325 MG TABLET (FP) PO PRN (14:30)
[2022-07-18] MEDS: LIDOCAINE PATCH REMOVAL MC SCH (22:00)
[2022-07-18] MEDS: THIAMINE HCL 100 MG TABLET (FP) PO SCH (22:00)
[2022-07-18] MEDS: MELATONIN 5 MG TABLETS PO SCH (22:00)
[2022-07-18] MEDS: traZODone HCL 100 MG TABLET (FP) PO SCH (22:00)
[2022-07-19] MEDS: CLINDAMYCIN HCL 150 MG CAPSULE (FP) PO SCH ×3 (06:41→22:05)
[2022-07-19] MEDS: GABAPENTIN 300 MG CAPSULE PO SCH ×3 (06:41→22:05)
[2022-07-19] MEDS: METHOCARBAMOL 500 MG TABLET PO PRN ×2 (09:33→22:06)
[2022-07-19] MEDS: LIDOCAINE 5% TOPICAL PATCH TP SCH (09:33)
[2022-07-19] MEDS ORDERED: methaDONE HCL 10 MG TABLET (FOR DETOX USE ONLY) PO ONE (10:00)
[2022-07-19] MEDS: BICTEGRAV/EMTRICIT/TENOFOV (BIKTARVY) 50-200-25 MG TABLET PO SCH (10:20)
[2022-07-19] MEDS: SULFAMETHOXAZOLE/TRIMETHOPRIM 800MG/160MG D.S. TABLET PO SCH (10:20)
[2022-07-19] MEDS: CLINDAMYCIN PHOSPHATE 1% TOPICAL GEL 30 GM TUBE TP SCH ×2 (10:20→22:06)
[2022-07-19] MEDS: CALCIUM CARBONATE 650 MG TABLET PO SCH (10:20)
[2022-07-19] MEDS: CITALOPRAM HYDROBROMIDE 20 MG TABLET PO SCH (10:20)
[2022-07-19] MEDS: NICOTINE 7 MG/24 HOURS TOPICAL PATCH TD SCH (10:22)
[2022-07-19] MEDS: PRENATAL VITAMINS W/ FOLIC ACID TABLET (FP) PO SCH (10:22)
[2022-07-19] MEDS: ACETAMINOPHEN 325 MG TABLET (FP) PO PRN (14:14)
[2022-07-19] MEDS ORDERED: ONDANSETRON *ODT* 4 MG TABLET SL ONE (15:41)
[2022-07-19] MEDS: MELATONIN 5 MG TABLETS PO SCH (22:05)
[2022-07-19] MEDS: traZODone HCL 100 MG TABLET (FP) PO SCH (22:05)
[2022-07-19] MEDS: THIAMINE HCL 100 MG TABLET (FP) PO SCH (22:05)
[2022-07-19] MEDS: LIDOCAINE PATCH REMOVAL MC SCH (22:07)
[2022-07-20] MEDS: GABAPENTIN 300 MG CAPSULE PO SCH (05:32)
[2022-07-20] MEDS: CLINDAMYCIN HCL 150 MG CAPSULE (FP) PO SCH (05:32)
[2022-07-20 06:43] VITALS: BP 103/65; PULSE 60; RESP 16; TEMP 97.7
== END 2022-07-20 08:53 | disposition home or self-care (01) | DRG 773 ==
LOC: YASAS 16:55 → Y6N 18:49
PROVIDERS: ADMIT Allergy & Immunology; ATTEND Surgery
PROC: HZ2ZZZZ Detoxification Services for Substance Abuse Treatment (ICD-10-PCS; principal; 2022-07-15)
DX: F11.23 Opioid dependence with withdrawal (principal); F14.20 Cocaine dependence, uncomplicated; F17.210 Nicotine dependence, cigarettes, uncomplicated; F33.1 Major depressive disorder, recurrent, moderate; F19.282 Other psychoactive substance dependence with psychoactive substance-induced sleep disorder; F19.24 Other psychoactive substance dependence with psychoactive substance-induced mood disorder; B20 Human immunodeficiency virus [HIV] disease; G62.9 Polyneuropathy, unspecified; L72.3 Sebaceous cyst; M25.512 Pain in left shoulder; R63.4 Abnormal weight loss; Z68.1 Body mass index [BMI] 19.9 or less, adult; Z99.89 Dependence on other enabling machines and devices; Z86.19 Personal history of other infectious and parasitic diseases
CPT/HCPCS: 36415; 73030-TC-LT-FY; 80053; 85027; 86780; 93005; 93010; C9803-CS; U0003; U0005

== ENCOUNTER 2022-07-21 17:42 | Inpatient (IN) | payer OTHER ==
[2022-07-21 19:02] VITALS: BMI 18.8
[2022-07-21] MEDS ORDERED: ACETAMINOPHEN 325 MG TABLET (FP) PO PRN (20:05)
[2022-07-21] MEDS ORDERED: POLYETHYLENE GLYCOL (HEALTHYLAX) 3350 17 GM PACKET PO PRN (20:05)
[2022-07-21] MEDS ORDERED: MAG HYDROX/AL HYDROX/SIMETH 30 ML UNIT-DOSE CUP PO PRN (20:05)
[2022-07-21] MEDS ORDERED: LOPERAMIDE HCL 2 MG CAPSULE PO PRN (20:05)
[2022-07-21] MEDS ORDERED: MAGNESIUM HYDROX 2400MG/30ML ORAL SUSPENSION 30 ML CUP PO PRN (20:05)
[2022-07-21] MEDS ORDERED: NICOTINE 10 MG CARTRIDGE (INHALER) IH PRN (20:05)
[2022-07-21] MEDS ORDERED: guaiFENesin 200 MG/10 ML 10 ML UNIT-DOSE CUPS PO PRN (20:05)
[2022-07-21] MEDS ORDERED: BENZOCAINE/MENTHOL (CHLORASEPTIC ) LOZENGE MM PRN (20:05)
[2022-07-22] MEDS: THIAMINE HCL 100 MG TABLET (FP) PO SCH ×2 (03:01→21:28)
[2022-07-22] MEDS: MELATONIN 5 MG TABLETS PO SCH ×2 (03:01→21:27)
[2022-07-22] MEDS: PRENATAL VITAMINS W/ FOLIC ACID TABLET (FP) PO SCH (09:54)
[2022-07-22] MEDS: NICOTINE 14 MG/24 HOURS TOPICAL PATCH TD SCH (09:54)
[2022-07-22] MEDS: BICTEGRAV/EMTRICIT/TENOFOV (BIKTARVY) 50-200-25 MG TABLET PO SCH (09:54)
[2022-07-22] MEDS: GABAPENTIN 300 MG CAPSULE PO SCH ×3 (09:54→21:27)
[2022-07-22] MEDS ORDERED: SULFAMETHOXAZOLE/TRIMETHOPRIM 800MG/160MG D.S. TABLET PO SCH (10:00)
[2022-07-22] MEDS: CITALOPRAM HYDROBROMIDE 20 MG TABLET PO SCH (10:16)
[2022-07-22] MEDS: SULFAMETHOXAZOLE/TRIMETHOPRIM 800MG/160MG D.S. TABLET PO SCH (10:16)
[2022-07-22 11:31] LABS: HEMATOCRIT 32.7 % (35.4-49); HEMOGLOBIN 10.3 GM/dL (11.7-16.9); MCH 28.2 pg (25.7-33.7); MCHC 31.5 g/dl (32.0-35.9); MEAN CELL VOLUME 89.5 fl (80-96); MEAN PLT VOLUME 7.6 fl (7.5-11.1); PLATELET COUNT 228 10^3/uL (134-434); RBC 3.65 M/mm3 (4.00-5.60); RDW 17.2 % (11.9-15.9); WHITE BLOOD COUNT 3.5 K/mm3 (4.0-10.0)
[2022-07-22 11:40] LABS: ALBUMIN 2.4 g/dl (3.4-5.0); BLOOD UREA NITROGEN 16.2 mg/dL (7-18); CALCIUM 8.2 mg/dL (8.5-10.1)
[2022-07-22 11:44] LABS: CREATININE 0.8 mg/dL (0.55-1.3)
[2022-07-22 11:46] LABS: BILIRUBIN,TOTAL 0.8 mg/dL (0.2-1); TOT PROT 6.9 g/dl (6.4-8.2)
[2022-07-22] MEDS: BACLOFEN 10 MG TABLET (FP) PO SCH (17:13)
[2022-07-22] MEDS ORDERED: traZODone HCL 100 MG TABLET (FP) PO SCH (22:00)
[2022-07-23] MEDS: GABAPENTIN 300 MG CAPSULE PO SCH (06:50)
[2022-07-23] MEDS: BICTEGRAV/EMTRICIT/TENOFOV (BIKTARVY) 50-200-25 MG TABLET PO SCH (07:04)
[2022-07-23 09:11] VITALS: RESP 16; TEMP 97.1
[2022-07-23] MEDS: SULFAMETHOXAZOLE/TRIMETHOPRIM 800MG/160MG D.S. TABLET PO SCH (09:29)
[2022-07-23] MEDS: PRENATAL VITAMINS W/ FOLIC ACID TABLET (FP) PO SCH (09:29)
[2022-07-23] MEDS: NICOTINE 14 MG/24 HOURS TOPICAL PATCH TD SCH (09:29)
[2022-07-23] MEDS: CITALOPRAM HYDROBROMIDE 20 MG TABLET PO SCH (09:29)
[2022-07-23] MEDS ORDERED: FERROUS SO4 325 MG TABLET (FP) PO SCH (10:00)
[2022-07-23] MEDS ORDERED: CITALOPRAM HYDROBROMIDE 10 MG TABLET PO SCH (10:00)
[2022-07-23] MEDS ORDERED: BUPRENORPHINE/NALOXONE 2 MG/0.5 MG FILM PACKET SL SCH (10:00)
[2022-07-23] MEDS: BACLOFEN 10 MG TABLET (FP) PO SCH (10:16)
[2022-07-23 10:23] VITALS: BP 105/64; PULSE 84
== END 2022-07-23 11:35 | disposition left against medical advice (07) | DRG 770 ==
LOC: YASAS 17:42 → Y3E 07-22 01:50
PROVIDERS: ADMIT Allergy & Immunology; ATTEND Psychiatry & Neurology Pain Medicine
PROC: HZ42ZZZ Group Counseling for Substance Abuse Treatment, Cognitive-Behavioral (ICD-10-PCS; principal; 2022-07-22)
DX: F11.20 Opioid dependence, uncomplicated (principal); F14.20 Cocaine dependence, uncomplicated; F10.20 Alcohol dependence, uncomplicated; F12.20 Cannabis dependence, uncomplicated; F17.210 Nicotine dependence, cigarettes, uncomplicated; F32.A Depression, unspecified; B20 Human immunodeficiency virus [HIV] disease; G62.9 Polyneuropathy, unspecified; G47.00 Insomnia, unspecified; R63.4 Abnormal weight loss; Z68.1 Body mass index [BMI] 19.9 or less, adult; Z86.19 Personal history of other infectious and parasitic diseases; Z99.89 Dependence on other enabling machines and devices; Z88.8 Allergy status to other drugs, medicaments and biological substances
CPT/HCPCS: 36415; 80053; 82140; 85027; 86780; C9803-CS; J0475; U0003; U0005

== ENCOUNTER 2023-08-06 11:27 | Inpatient (IN) | payer OTHER ==
[2023-08-06 14:23] VITALS: BMI 27.3
[2023-08-06] MEDS ORDERED: MAG HYDROX/AL HYDROX/SIMETH 30 ML UNIT-DOSE CUP PO PRN (14:46)
[2023-08-06] MEDS ORDERED: guaiFENesin 600 MG TABLET.ER (FP) PO PRN (14:46)
[2023-08-06] MEDS ORDERED: BENZOCAINE/MENTHOL (CHLORASEPTIC ) LOZENGE MM PRN (14:46)
[2023-08-06] MEDS ORDERED: NALOXONE HCL (KLOXXADO) 8 MG SPRAY NS PRN (14:46)
[2023-08-06] MEDS ORDERED: POLYETHYLENE GLYCOL (HEALTHYLAX) 3350 17 GM PACKET PO PRN (14:46)
[2023-08-06] MEDS ORDERED: BENZONATATE 200 MG CAPSULE PO PRN (14:46)
[2023-08-06] MEDS ORDERED: ONDANSETRON *ODT* 4 MG TABLET SL PRN (14:46)
[2023-08-06] MEDS ORDERED: NALOXONE HCL 0.4 MG/ML VIAL IM PRN (14:46)
[2023-08-06] MEDS ORDERED: NICOTINE POLACRILEX 2 MG LOZENGE BC PRN (14:46)
[2023-08-06] MEDS ORDERED: LOPERAMIDE HCL 2 MG CAPSULE PO PRN (14:46)
[2023-08-06] MEDS ORDERED: DICYCLOMINE HCL 10 MG CAPSULE PO PRN (14:46)
[2023-08-06] MEDS ORDERED: P-EPHED 60MG/TRIPROLIDI 2.5MG TABLET PO PRN (14:46)
[2023-08-06] MEDS ORDERED: MAGNESIUM HYDROX 2400MG/30ML ORAL SUSPENSION 30 ML CUP PO PRN (14:46)
[2023-08-06] MEDS ORDERED: cloNIDine HCL 0.1 MG TABLET PO PRN (14:48)
[2023-08-06] MEDS ORDERED: methaDONE HCL 10 MG TABLET (FOR DETOX USE ONLY) PO ONE (14:48)
[2023-08-06] MEDS ORDERED: methaDONE HCL 10 MG TABLET (FOR DETOX USE ONLY) ONE (15:18)
[2023-08-06] MEDS: hydrOXYzine PAMOATE 25 MG CAPSULE (FP) PO PRN (22:47)
[2023-08-06] MEDS: THIAMINE HCL 100 MG TABLET (FP) PO SCH (22:47)
[2023-08-06] MEDS: METHOCARBAMOL 500 MG TABLET PO PRN (22:47)
[2023-08-06] MEDS: OSELTAMIVIR PHOSPHATE 75 MG CAPSULE PO SCH (22:47)
[2023-08-06] MEDS: MELATONIN 5 MG TABLETS PO SCH (22:47)
[2023-08-07] MEDS: OSELTAMIVIR PHOSPHATE 75 MG CAPSULE PO SCH ×2 (09:24→22:29)
[2023-08-07] MEDS: PRENATAL VITAMINS W/ FOLIC ACID TABLET (FP) PO SCH (09:24)
[2023-08-07 11:22] LABS: POTASSIUM 3.7 mmol/L (3.5-5.1)
[2023-08-07 11:25] LABS: HEMATOCRIT 34.7 % (35.4-49); HEMOGLOBIN 11.5 GM/dL (11.7-16.9); MCH 29.5 pg (25.7-33.7); MCHC 33.3 g/dl (32.0-35.9); MEAN CELL VOLUME 88.7 fl (80-96); MEAN PLT VOLUME 7.7 fl (7.5-11.1); PLATELET COUNT 235 10^3/uL (134-434); RBC 3.91 M/mm3 (4.00-5.60); RDW 14.1 % (11.9-15.9); WHITE BLOOD COUNT 3.5 K/mm3 (4.0-10.0)
[2023-08-07 11:33] LABS: ALBUMIN 2.6 g/dl (3.4-5.0); BLOOD UREA NITROGEN 7.6 mg/dL (7-18); CALCIUM 7.8 mg/dL (8.5-10.1)
[2023-08-07 11:36] LABS: BILIRUBIN,TOTAL 0.4 mg/dL (0.2-1); CREATININE 0.7 mg/dL (0.55-1.3)
[2023-08-07 11:38] LABS: TOT PROT 6.6 g/dl (6.4-8.2)
[2023-08-07] MEDS: METHOCARBAMOL 500 MG TABLET PO PRN (17:39)
[2023-08-07] MEDS: hydrOXYzine PAMOATE 25 MG CAPSULE (FP) PO PRN (22:29)
[2023-08-07] MEDS: THIAMINE HCL 100 MG TABLET (FP) PO SCH (22:29)
[2023-08-07] MEDS: MELATONIN 5 MG TABLETS PO SCH (22:29)
[2023-08-08] MEDS: PRENATAL VITAMINS W/ FOLIC ACID TABLET (FP) PO SCH (09:28)
[2023-08-08] MEDS: METHOCARBAMOL 500 MG TABLET PO PRN ×2 (09:28→23:19)
[2023-08-08] MEDS: OSELTAMIVIR PHOSPHATE 75 MG CAPSULE PO SCH ×2 (09:28→22:43)
[2023-08-08] MEDS ORDERED: methaDONE HCL 10 MG TABLET (FOR DETOX USE ONLY) PO ONE (10:00)
[2023-08-08] MEDS ORDERED: TRIMETHOBENZAMIDE HCL 200MG/2ML INJ IM PRN (14:40)
[2023-08-08] MEDS: THIAMINE HCL 100 MG TABLET (FP) PO SCH (22:43)
[2023-08-08] MEDS: MELATONIN 5 MG TABLETS PO SCH (22:43)
[2023-08-09] MEDS: PRENATAL VITAMINS W/ FOLIC ACID TABLET (FP) PO SCH (09:19)
[2023-08-09] MEDS: OSELTAMIVIR PHOSPHATE 75 MG CAPSULE PO SCH ×2 (09:20→22:33)
[2023-08-09] MEDS: hydrOXYzine PAMOATE 25 MG CAPSULE (FP) PO PRN (09:30)
[2023-08-09] MEDS: THIAMINE HCL 100 MG TABLET (FP) PO SCH (22:33)
[2023-08-09] MEDS: MELATONIN 5 MG TABLETS PO SCH (22:34)
[2023-08-09] MEDS: METHOCARBAMOL 500 MG TABLET PO PRN (22:50)
[2023-08-10] MEDS: ACETAMINOPHEN 325 MG TABLET (FP) PO PRN ×2 (00:06→23:01)
[2023-08-10] MEDS: PRENATAL VITAMINS W/ FOLIC ACID TABLET (FP) PO SCH (09:43)
[2023-08-10] MEDS: BICTEGRAV/EMTRICIT/TENOFOV (BIKTARVY) 50-200-25 MG TABLET PO SCH (09:43)
[2023-08-10] MEDS: METHOCARBAMOL 500 MG TABLET PO PRN ×2 (09:43→22:26)
[2023-08-10] MEDS: OSELTAMIVIR PHOSPHATE 75 MG CAPSULE PO SCH ×2 (09:43→22:26)
[2023-08-10] MEDS: SULFAMETHOXAZOLE/TRIMETHOPRIM 800MG/160MG D.S. TABLET PO SCH (09:43)
[2023-08-10] MEDS ORDERED: methaDONE HCL 10 MG TABLET (FOR DETOX USE ONLY) PO ONE (10:00)
[2023-08-10] MEDS: hydrOXYzine PAMOATE 25 MG CAPSULE (FP) PO PRN (17:03)
[2023-08-10] MEDS: MELATONIN 5 MG TABLETS PO SCH (22:26)
[2023-08-10] MEDS: THIAMINE HCL 100 MG TABLET (FP) PO SCH (22:26)
[2023-08-11 09:28] VITALS: BP 105/56; PULSE 68; RESP 17; TEMP 978
[2023-08-11] MEDS: PRENATAL VITAMINS W/ FOLIC ACID TABLET (FP) PO SCH (10:05)
[2023-08-11] MEDS: BICTEGRAV/EMTRICIT/TENOFOV (BIKTARVY) 50-200-25 MG TABLET PO SCH (10:05)
[2023-08-11] MEDS: SULFAMETHOXAZOLE/TRIMETHOPRIM 800MG/160MG D.S. TABLET PO SCH (10:05)
[2023-08-11] MEDS: OSELTAMIVIR PHOSPHATE 75 MG CAPSULE PO SCH (10:05)
== END 2023-08-11 10:05 | disposition home or self-care (01) | DRG 773 ==
LOC: YASAS 11:27 → Y6N 15:31
PROVIDERS: ADMIT Allergy & Immunology; ATTEND Surgery
PROC: HZ2ZZZZ Detoxification Services for Substance Abuse Treatment (ICD-10-PCS; principal; 2023-08-06)
DX: F11.23 Opioid dependence with withdrawal (principal); F14.20 Cocaine dependence, uncomplicated; F12.20 Cannabis dependence, uncomplicated; F17.210 Nicotine dependence, cigarettes, uncomplicated; Z21 Asymptomatic human immunodeficiency virus [HIV] infection status; J10.1 Influenza due to other identified influenza virus with other respiratory manifestations; Z86.19 Personal history of other infectious and parasitic diseases; Z88.8 Allergy status to other drugs, medicaments and biological substances
CPT/HCPCS: 0241U-QW; 36415; 80053; 85027; 86780; 87635; 93005; 93010